=== PATIENT | male | born 1985 | race Caucasian/White ===

== ENCOUNTER 2016-05-31 09:17 | Emergency (ER) | END 2016-05-31 14:19 | disposition home or self-care (01) | DX: N48.1 Balanitis (principal); E11.9 Type 2 diabetes mellitus without complications; Z79.4 Long term (current) use of insulin | CPT/HCPCS: 80053; 81003; 82962; 85025; 87591; 96372; J0696; J7030; Z7502; Z7610 ==

== ENCOUNTER 2016-06-23 15:24 | Inpatient (IN) | payer OTHER ==
[2016-06-23] VITALS (11 sets, daily range): BP systolic 103–129; BP diastolic 30–98; PULSE 91–119; RESP 8–33; TEMP 97.8; Ht 185.4 cm; Wt 90.7 kg
[~2016-06-23] VITALS: Ht 185.4 cm; Wt 90.7 kg
[~2016-06-23 15:24] MED LIST: CLOT30CR24 TOP; INSU100C SQ; LANT3I SC; NPH,100V SC
[2016-06-23 15:38] LABS: ADD SCAN DIFF NO
[2016-06-23] MEDS ORDERED: SOD CHLORIDE 0.9% 2,000 ML IV STA (15:39)
[2016-06-23 15:40] LABS: BASOPHIL # 0.1 10^3/ul (0.0-0.1); BASOPHILS % 0.7 % (0.0-2.0); EOSINOPHILS # 0.3 10^3/ul (0.0-0.5); EOSINOPHILS % 3.9 % (0.0-7.0); HEMATOCRIT 42.2 % (42.0-52.0); HEMOGLOBIN 15.7 g/dl (14.0-18.0); LYMPHOCYTES # 3.4 10^3/ul (0.8-2.9); LYMPHOCYTES % 49.3 % (15.0-51.0); MEAN CORPUSCULAR HGB CONC 37.2 g/dl (32.0-37.0); MEAN CORPUSCULAR VOLUME 83.2 fl (82.0-101.0); MONOCYTE # 0.5 10^3/ul (0.3-0.9); MONOCYTES % 7.8 % (0.0-11.0); NEUTROPHIL # 2.6 10^3/ul (1.6-7.5); NEUTROPHILS % 38.2 % (39.0-77.0); PLATELET COUNT 198 10^3/UL (140-415); RED BLOOD COUNT 5.07 10^6/ul (4.70-6.10); RED CELL DISTRIBUTION WIDTH 11.9 % (11.5-14.5); WHITE BLOOD COUNT 6.9 10^3/ul (4.8-10.8)
[2016-06-23 15:57] LABS: ALBUMIN 4.5 g/dl (3.3-4.9)
[2016-06-23 15:58] LABS: CHLORIDE 105 mmol/L (97-110); POTASSIUM 3.7 mmol/L (3.5-5.1); SODIUM 147 mmol/L (135-144)
[2016-06-23 16:00] LABS: ANION GAP 20 (8-16); ASPARTATE AMINO TRANSFERASE 45 IU/L (15-46); BILIRUBIN,INDIRECT 0.3 mg/dl (0-1.1); BILIRUBIN,TOTAL 0.3 mg/dl (0.2-1.3); CARBON DIOXIDE 26 mmol/L (21-31); CREATININE 0.59 mg/dl (0.61-1.24)
[2016-06-23 16:01] LABS: ALANINE AMINOTRANSFERASE 80 IU/L (13-69); ALBUMIN/GLOBULIN RATIO 2.04; ALKALINE PHOSPHATASE 53 IU/L (42-121); BLOOD UREA NITROGEN 12 mg/dl (7-20); CALCIUM 9.6 mg/dl (8.4-10.2); GLUCOSE 70 mg/dl (70-220); TOTAL PROTEIN 6.7 g/dl (6.1-8.1)
[2016-06-23 16:03] LABS: ACETAMINOPHEN < 10.0 ug/ml (10.0-30.0); SALICYLATE < 1.0 mg/dl (5.0-30.0)
[2016-06-23] MEDS ORDERED: NA BICARBONATE 8.4% 50 ML SYG IV STA (16:26)
[2016-06-23] MEDS ORDERED: SODIUM BICARBONATE (IV ADD) 150 MEQ in DEXTROSE 5% 1,000 ML IV STA (16:27)
[2016-06-23 17:49] LABS: ADD UMIC NO; URINE BILIRUBIN (Dip) NEGATIVE (NEGATIVE); URINE BLOOD (Dip) NEGATIVE (NEGATIVE); URINE COLOR LT. YELLOW (YELLOW); URINE GLUCOSE (Dip) NEGATIVE (NEGATIVE); URINE KETONES (Dip) NEGATIVE (NEGATIVE); URINE LEUKOCYTE ESTERASE (Dip) NEGATIVE (NEGATIVE); URINE NITRITE (Dip) NEGATIVE (NEGATIVE); URINE TOTAL PROTEIN (Dip) NEGATIVE (NEGATIVE); URINE UROBILINOGEN (Dip) 0.2 E.U./dL (0.1-1.0)
[2016-06-23 18:05] LABS: BARBITURATES Negative (NEGATIVE)
[2016-06-23 18:06] LABS: BENZODIAZEPINES Negative (NEGATIVE); CANNABINOIDS Negative (NEGATIVE); COCAINE Negative (NEGATIVE); OPIATES Negative (NEGATIVE)
[2016-06-23] MEDS ORDERED: ONDANSETRON 4 MG INJ IV PRN (18:30)
[2016-06-23] MEDS ORDERED: NACL 0.9% 3 ML SYG IV SCH (18:30)
[2016-06-23] MEDS ORDERED: LORAZEPAM 2 MG INJ IV PRN (18:30)
[2016-06-23] MEDS ORDERED: ACETAMINOPHEN 325 MG TAB PO PRN (18:30)
[2016-06-23] MEDS ORDERED: GLUCOSE GEL 15 GRAM TUBE PO PRN ×2 (19:00)
[2016-06-23] MEDS ORDERED: GLUCAGON 1 MG INJ IM PRN (19:00)
[2016-06-23] MEDS ORDERED: GLUCOSE GEL 15 GRAM TUBE BUCCAL PRN (19:00)
[2016-06-23] MEDS ORDERED: DEXTROSE 50% 50 ML SYRINGE IV PRN ×2 (19:00)
--- NOTE | 2016-06-23 19:51 | ERA ---
ER Documentation Chief Complaint Date/Time DATE: 06/23/16 TIME: 19:48 Chief Complaint ETOH HPI Patient is a 31-year-old male with depression who presents with a overdose. Please note the history and physical exam is limited secondary to the patient's mental status. The patient was brought in by ambulance. His family called 911 because they were concerned about him. The patient admits to drinking alcohol. The paramedics that he also used cocaine. He says that he takes Prozac for depression. ROS All systems reviewed and are negative except as per history of present illness. Medications Home Meds Reported Medications Insulin Lispro (Humalog) 100 Unit/1 Ml Cartridge, 20 UNIT SQ BEFORE MEALS 04/06/16 Nph, Human Insulin Isophane (Humulin N) 100 Units/Ml Vial, 20 UNIT SC HS, VIAL 01/06/15 Insulin Glargine* (Lantus*) 100 Unit/Ml Soln, 40 UNIT SC HS, EA 06/22/14 Discontinued Scripts Clotrimazole* (Clotrimazole* AF) 1% - 30 Gm Cream.gm., 1 APPLIC TOP BID for 7 Days, #1 TUB Prov:MICHAEL FULLER PA-C 05/31/16 Allergies Allergies: Coded Allergies: No Known Allergy (Verified , 06/23/16) PMhx/Soc History of Surgery: Yes (shaan (2007)) Anesthesia Reaction: No Hx Neurological Disorder: No Hx Respiratory Disorders: No Hx Cardiac Disorders: Yes (HIGH CHOLESTEROL) Hx Psychiatric Problems: Yes (DEPRESSION, anxiety) Hx Miscellaneous Medical Probl: Yes (DM) Hx Alcohol Use: Yes (HEAVY DRANK 8BEERS AND HARD LIQUOR TODAY) Hx Substance Use: Yes (MARAJUANA) Hx Tobacco Use: No Smoking Status: Unknown if ever smoked FmHx Family History: No diabetes Physical Exam Vitals Vital Signs Date Time Temp Pulse Resp B/P Pulse Ox O2 Delivery O2 Flow Rate FiO2 06/23/16 19:02 97.6 87 13 108/62 97 Room Air 06/23/16 17:40 98.0 114 20 137/96 100 Room Air 06/23/16 16:50 98.0 123 20 108/71 100 Room Air 06/23/16 15:24 98.1 127 20 131/77 100 Physical Exam Const: Altered Head: Atraumatic Eyes: Normal Conjunctiva ENT: Normal External Ears, Nose and Mouth. Neck: Full range of motion..~ No meningismus. Resp: Clear to auscultation bilaterally Cardio: Tachycardic rate Abd: Soft, non tender, non distended. Normal bowel sounds Skin: No petechiae or rashes Back: No midline or flank tenderness Ext: No cyanosis, or edema Neur: Awake but intoxicated Result Diagram: 06/23/16 1530 06/23/16 1530 Results 24 hrs Laboratory Tests Test 06/23/16 15:30 06/23/16 15:56 06/23/16 16:25 06/23/16 16:44 Acetaminophen Level < 10.0ug/ml Alanine Aminotransferase (ALT/SGPT) 80IU/L Albumin 4.5g/dl Albumin/Globulin Ratio 2.04 Alkaline Phosphatase 53IU/L Anion Gap 20 Aspartate Amino Transf (AST/SGOT) 45IU/L Basophils # 0.110^3/ul Basophils % 0.7% Blood Urea Nitrogen 12mg/dl Calcium Level 9.6mg/dl Carbon Dioxide Level 26mmol/L Chloride Level 105mmol/L Creatinine 0.59mg/dl Direct Bilirubin 0.00mg/dl Eosinophils # 0.310^3/ul Eosinophils % 3.9% Ethyl Alcohol Level 122.0mg/dl Globulin 2.20g/dl Glucose Level 70mg/dl Hematocrit 42.2% Hemoglobin 15.7g/dl Indirect Bilirubin 0.3mg/dl Lymphocytes # 3.410^3/ul Lymphocytes % 49.3% Mean Corpuscular Hemoglobin 31.0pg Mean Corpuscular Hemoglobin Concent 37.2g/dl Mean Corpuscular Volume 83.2fl Mean Platelet Volume 9.0fl Monocytes # 0.510^3/ul Monocytes % 7.8% Neutrophils # 2.610^3/ul Neutrophils % 38.2% Nucleated Red Blood Cells # 0.010^3/ul Nucleated Red Blood Cells % 0.0/100WBC Platelet Count 74027^3/UL Potassium Level 3.7mmol/L Red Blood Count 5.0710^6/ul Red Cell Distribution Width 11.9% Salicylates Level < 1.0mg/dl Sodium Level 147mmol/L Total Bilirubin 0.3mg/dl Total Protein 6.7g/dl White Blood Count 6.910^3/ul Bedside Glucose 64mg/dL 80mg/dL Urine Amphetamines Screen Negative Urine Barbiturates Negative Urine Benzodiazepines Screen Negative Urine Bilirubin NEGATIVE Urine Cannabinoids Negative Urine Clarity CLEAR Urine Cocaine Screen Negative Urine Color LT. YELLOW Urine Glucose NEGATIVE% Urine Hemoglobin NEGATIVE Urine Ketones NEGATIVE Urine Leukocyte Esterase NEGATIVE Urine Nitrite NEGATIVE Urine Opiates Screen Negative Urine Specific [place] <=1.005 Urine Total Protein NEGATIVE Urine Urobilinogen 0.2 E.U./dL Urine pH 6.0 Current Medications Medications (Trade) Dose Ordered Sig/Amanda Route PRN Reason Start Time Stop Time Status Last Admin Dose Admin Sodium Chloride (NS) 2,000 ml @ 1,000 mls/hr Q2H STAT IV 06/23/16 15:39 06/23/16 17:38 DC 06/23/16 16:40 Sodium Bicarbonate 50 ml 50 ml ONCE STAT IV 06/23/16 16:26 06/23/16 16:27 DC 06/23/16 16:38 Sodium Bicarbonate/ Dextrose (Na Bicarb/D5W) 1,150 ml @ 200 mls/hr Q5H45M STAT IV 06/23/16 16:27 06/23/16 22:11 06/23/16 17:05 IV Flush (NS 3 ml) 3 ml PER PROTOCOL IV 06/23/16 18:30 Lorazepam (Ativan) 0.5 mg Q6H PRN IV ANXIETY 06/23/16 18:30 Ondansetron HCl (Zofran Inj) 4 mg Q6H PRN IV NAUSEA AND/OR VOMITING 06/23/16 18:30 Acetaminophen (Tylenol Tab) 650 mg Q6H PRN PO PAIN LEVEL 1-3 OR FEVER 06/23/16 18:30 Acetaminophen/ Hydrocodone Bitart ([place] (5/325)) 1 tab Q6H PRN PO PAIN LEVEL 4-6 06/23/16 18:30 Morphine Sulfate (morphine) 2 mg Q4H PRN IV PAIN LEVEL 7-10 06/23/16 18:30 Famotidine (Pepcid) 20 mg Q12 PO 06/23/16 21:00 Insulin Aspart (Novolog Insulin Pen) NOVOLOG *MILD* ALGORITHM WITH MEALS BEDTIME SC 06/23/16 21:00 UNV Insulin Glargine (Lantus) 10 unit DAILY@08 SC 06/24/16 08:00 UNV Insulin Aspart (Novolog Insulin Pen) 3 unit WITH MEALS SC 06/24/16 08:00 Miscellaneous Information (* Miscellaneous Pharmacy Order) HYPOGLYCEMIA PROTOCOL w... ONCE ONCE XX 06/23/16 18:30 06/23/16 18:30 DC Miscellaneous Information (* Miscellaneous Pharmacy Order) Discontinue Glyburide, Glipizide,... ONCE ONCE XX 06/23/16 18:30 06/23/16 18:30 DC Miscellaneous Information (* Miscellaneous Pharmacy Order) Discontinue all previ... ONCE ONCE XX 06/23/16 18:30 06/23/16 18:30 DC Miscellaneous Information 1 ea NOTE XX 06/23/16 19:00 Glucose (Glutose) 15 gm Q15M PRN PO DECREASED GLUCOSE 06/23/16 19:00 Glucose (Glutose) 22.5 gm Q15M PRN PO DECREASED GLUCOSE 06/23/16 19:00 Dextrose (D50w Syringe) 25 ml Q15M PRN IV DECREASED GLUCOSE 06/23/16 19:00 Dextrose (D50w Syringe) 50 ml Q15M PRN IV DECREASED GLUCOSE 06/23/16 19:00 Glucagon (Glucagen) 1 mg Q15M PRN IM DECREASED GLUCOSE 06/23/16 19:00 Glucose (Glutose) 15 gm Q15M PRN BUCCAL DECREASED GLUCOSE 06/23/16 19:00 Chlordiazepoxide 50 mg 50 mg TID PO 06/23/16 21:00 UNV Multivitamins/ Thiamine HCl/ Folic Acid/Sodium Chloride (Mvi-12 Adult/ Vitamin B1/Folic Acid/NS) 1,011.2 ml @ 125 mls/ hr DAILY@09 IVPB 06/24/16 09:00 UNV Sertraline HCl (Zoloft) 100 mg DAILY PO 06/24/16 09:00 UNV Procedures/MDM EKG #1 read by me: Rate/Rhythm: Sinus tachycardia at a rate of 118 Intervals: Prolonged QRS of 156 Impression: Sinus tachycardia with prolonged QRS and prominent R-wave in aVR consistent with tricyclic antidepressant overdose EKG #2 read by me: Rate/Rhythm: Sinus tachycardia at a rate of 111 Intervals: Prolonged QRS of 142 Impression: Sinus tachycardia with prolonged QRS and prominent R-wave in aVR consistent with tricyclic antidepressant overdose but improvement after bicarb Patient is a 31-year-old male with depression who presents with an overdose. I am concerned for possible acute tricyclic antidepressant overdose based on the EKG appearance with prominent R-wave in aVR, sinus tachycardia, and prolonged QRS complex. The patient was given bicarb 1 amp IV as well as a bicarbonate drip. The patient is preferred IPA and I spoke with Dr. Garrett for admission to the ICU. The patient has diabetes and is seen by Dr. Kyle and I spoke with Dr. Smiley as well who will see the patient in consultation. The patient has a one-to-one sitter as this was most likely an intentional overdose given his depression. The patient will likely need further psychiatric care once he is medically cleared. Departure Diagnosis: Primary Impression: Tricyclic antidepressant poisoning Qualified Code: T43.012A - Poisoning by tricyclic antidepressant, intentional self-harm, initial encounter Additional Impressions: Suicidal ideation Alcoholic intoxication Qualified Code: F10.121 - Alcoholic intoxication, with delirium Overdose Qualified Code: T50.902A - Overdose, intentional self-harm, initial encounter Condition: Critical DAMIEN BRAVO MD Jun 23, 2016 19:51
[2016-06-23] MEDS: INSULIN ASPART [NOVOLOG] 3 ML PEN SC SCH (21:00)
[2016-06-23] MEDS: CHLORDIAZEPOXIDE 25 MG CAP PO SCH (21:26)
[2016-06-23] MEDS: FAMOTIDINE 20 MG TAB PO SCH (21:26)
[2016-06-24] VITALS (20 sets, daily range): BP systolic 103–138; BP diastolic 60–98; PULSE 84–103; RESP 13–21
--- NOTE | 2016-06-24 04:22 | HP ---
DATE OF ADMISSION: 06/23/2016 TIME OF EVALUATION: 1800 hours. REASON FOR ADMISSION: Brought in for alcohol intoxication and altered level of consciousness. HISTORY OF PRESENT ILLNESS: This is a 31-year-old male with past medical history of depression, alcohol abuse, and diabetes mellitus type2 who was brought to the emergency room from because of alcohol intoxication and altered level of consciousness. The patient was noticed to have alcohol level of 122 in the emergency room. The patient was somnolent but awake and was able to answer questions. The patient verbalized that he does not remember what happened before he was brought to the hospital. The patient verbalized that he does not remember how much alcohol he drank. The patient also verbalized that he took "31 tablets of Lorazepam and 10 tablets of Ambien." The patient verbalized that he took these medications because he wanted to "get high." However, the patient's urine drug toxicology was negative for any benzodiazepines. The patient kept on saying "I am not suicidal." However, the patient verbalized that he has been placed on 5150 previously, and he was requesting not to make him a 5150 again. The patient verbalized that he was having some headache. The patient denied any visual or tactile hallucinations. The patient denied any chest pain, nausea, abdominal pain, or diarrhea. The patient was noticed to have multiple skin abrasions on both upper and lower extremities. The patient was unable to give me a complete explanation. 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 The patient was noticed to be hypoglycemic with a glucose of 64. The patient was treated with IV fluids along with IV sodium bicarbonate in the emergency room. PAST MEDICAL HISTORY: Type 2 diabetes mellitus, dyslipidemia, depression. PAST SURGICAL HISTORY: Appendectomy, bilateral foot surgeries. HOME MEDICATIONS: 1. Lantus insulin 40 units subcutaneously at bedtime. 2. Humalog insulin 20 units subcutaneously before meals. 3. NPH insulin 20 units subcutaneously at bedtime. ALLERGIES: NO KNOWN DRUG ALLERGIES. SOCIAL HISTORY: The patient verbalized that he lives at home with his mother. The patient verbalized that he works at [employer]. Everyday alcohol user. He verbalized that he smokes weed. He denies any tobacco use. REVIEW OF SYSTEMS: A 12-point review of systems was made and review of systems was negative other than what is mentioned in the history of present illness. PHYSICAL EXAMINATION: VITAL SIGNS: Temperature 97.6, pulse rate 87, respiratory rate 13, blood pressure 108/62, oxygen saturation 97% on room air. GENERAL: This is a slightly overweight male lying in bed who looks disheveled and not in any apparent distress. HEENT: Head normocephalic and atraumatic. Eyes: Anicteric sclerae. Conjunctivae clear. ENT: Nasal septum is midline. Oral mucosa is dry. NECK: Supple. No JVD noticed. RESPIRATORY: Bilaterally clear to auscultation. No adventitious breath sounds heard. No use of accessory muscles of respiration. CARDIAC: Regular rhythm and rate. No murmurs. GASTROINTESTINAL: Abdomen soft, nontender, nondistended. Bowel sounds positive in all 4 quadrants. Right lower quadrant transverse surgical scar. GENITOURINARY: Deferred. EXTREMITIES: No cyanosis, no clubbing, no edema. Peripheral pulses palpable. NEUROLOGIC: The patient is awake, alert, and oriented. PSYCHIATRIC: Good attention span. Cooperative. No flight of ideas. LABORATORY AND DIAGNOSTIC DATA: WBC 6.9, hemoglobin 15.7, hematocrit 42.2, platelet count 198. Sodium 147, potassium 3.7, chloride 105, carbon dioxide 26 , anion gap 20, BUN 12, creatinine 0.59, glucose 70, calcium 9.6, AST 45, ALT 80 , alkaline phosphatase 53. Urinalysis: Urine nitrite negative, urine leukocyte esterase negative, urine glucose negative, Urine drug toxicology: Negative. Alcohol level 122. IMPRESSION: This is a 31-year-old male with past medical history of depression , diabetes mellitus, and hyperlipidemia who was brought in because of alcohol intoxication and altered level of consciousness with possible TCA overdose. He will be admitted here for further treatment and evaluation. ASSESSMENT AND PLAN: 1. Acute encephalopathy, most probably secondary to alcohol intoxication. The patient is currently awake and alert. The patient will be started on daily banana bag. A social work consult will be obtained. The patient was started on a tapering dose of Librium. The patient will be closely monitored for any acute alcohol withdrawal, delirium. 2. Sinus tachycardia with prolonged QRS and prominent R-wave in aVR consistent with tricyclic antidepressant overdose. Status post sodium bicarbonate. The patient will be monitored in the intensive care unit. Troponins will be obtained to evaluate for any underlying acute coronary syndrome. 3. Intentional overdosing with alcohol with possible TCA overdose. The patient has prior history of suicidal ideation. The patient has prior history of psych hospitalization. Although the patient denies any suicidal ideation, it is very likely that the patient was depressed and was having suicidal ideation. The patient will be placed on a 1:1 sitter. A protective services social worker consult will be obtained. The patient will be started an antidepressant. The patient will also be started on p.r.n. anxiolytics. 4. Type 2 diabetes mellitus. The patient will be resumed on insulin sliding scale along with Lantus as well as premeal insulin. A hemoglobin A1c will be obtained to evaluate the blood glucose control over the past few weeks. 5. Dyslipidemia. A fasting lipid panel will be obtained on this patient. We will reinforce a cholesterol diet. Plan. The patient will be admitted to inpatient intensive care unit. The patient will be started on a carbohydrate controlled diet. The patient will be started on DVT prophylaxis and gastrointestinal prophylaxis. The patient will remain a FULL CODE. Activities will be as tolerated under supervision. A 1:1 sitter will be ordered on this patient. The rest of the patient's findings will be based on the clinical course and the results of diagnostic studies. Based on the patient's clinical presentation, he most probably requires at least 2 midnights' stay for further management and evaluation of his clinical presentation. The case and management of this patient was fully discussed with Dr. Alejo. Approximately 60 minutes was spent on the history and physical of this patient. DIMA ALEJO MD, AM/MIGUEL Conf#: [id number] DID#: [id number] MTDD
[2016-06-24 06:00] LABS: ADD SCAN DIFF NO
[2016-06-24 06:16] LABS: BASOPHILS % 0.9 % (0.0-2.0); EOSINOPHILS # 0.2 10^3/ul (0.0-0.5); EOSINOPHILS % 4.3 % (0.0-7.0); HEMATOCRIT 38.8 % (42.0-52.0); HEMOGLOBIN 13.9 g/dl (14.0-18.0); LYMPHOCYTES # 1.7 10^3/ul (0.8-2.9); LYMPHOCYTES % 38.8 % (15.0-51.0); MEAN CORPUSCULAR HEMOGLOBIN 30.6 pg (29.0-33.0); MEAN CORPUSCULAR HGB CONC 35.8 g/dl (32.0-37.0); MEAN CORPUSCULAR VOLUME 85.5 fl (82.0-101.0); MEAN PLATELET VOLUME 9.4 fl (7.4-10.4); MONOCYTE # 0.5 10^3/ul (0.3-0.9); MONOCYTES % 11.1 % (0.0-11.0); NEUTROPHILS % 44.7 % (39.0-77.0); PLATELET COUNT 183 10^3/UL (140-415); RED BLOOD COUNT 4.54 10^6/ul (4.70-6.10); WHITE BLOOD COUNT 4.4 10^3/ul (4.8-10.8)
[2016-06-24 06:45] LABS: TROPONIN-I < 0.010 ng/ml (0.00-0.12)
[2016-06-24 06:46] LABS: ALBUMIN 3.5 g/dl (3.3-4.9)
[2016-06-24 06:47] LABS: POTASSIUM 3.8 mmol/L (3.5-5.1)
[2016-06-24 06:49] LABS: ALBUMIN/GLOBULIN RATIO 1.66; BILIRUBIN,INDIRECT 0.5 mg/dl (0-1.1); BILIRUBIN,TOTAL 0.5 mg/dl (0.2-1.3); CREATININE 0.65 mg/dl (0.61-1.24); TOTAL PROTEIN 5.6 g/dl (6.1-8.1)
[2016-06-24 06:50] LABS: CALCIUM 8.6 mg/dl (8.4-10.2); CHOLESTEROL 158 mg/dl (100-200); TRIGLYCERIDES 104 mg/dl (0-149)
[2016-06-24 06:51] LABS: CHOL/HDL RATIO 5.2 RATIO; HDL CHOLESTEROL 30 mg/dl (28-63); MAGNESIUM 1.7 mg/dl (1.7-2.5); PHOSPHORUS 4.2 mg/dl (2.5-4.9)
[2016-06-24] MEDS ORDERED: INSULIN ASPART [NOVOLOG] 3 ML PEN SC SCH (07:35)
--- NOTE | 2016-06-24 07:49 | PN ---
Date/Time of Note Date/Time of Note DATE: 06/24/16 TIME: 07:45 Assessment/Plan VTE Prophylaxis VTE Prophylaxis Intervention: other Lines/Catheters IV C[facility]ter Type (from [facility] Peripheral IV Assessment/Plan Problems: (1) Alcoholism /alcohol abuse Status: Chronic Comment: This is been a chronic problem the patient states that he would really like to go into a rehab facility. He states he is attempted to a number of times but it that has been turned away at the last moment. Compounding this is that he essentially has changed his healthcare providers with his changed his physicians on a frequent basis. Given that he has now had a formalized suicide attempt he should go to some type of psychiatric facility and then into an inpatient drug and alcohol rehab facility. He will receive a banana bag presently. (2) Overdose Status: Acute Comment: The basis of labeling this a try cyclic antidepressant was based exclusively on the EKG. His tox screen actually is relatively negative except for alcohol. Regardless he is now cooled off in the ICU and can be transferred to regular floor with a sitter for protection and we can go ahead with a tele- psych consultation. Medically he is clear Qualifiers: Encounter type: initial encounter Injury intent: intentional self-harm Qualified Code: T50.902A - Overdose, intentional self-harm, initial encounter (3) Suicidal ideation Status: Acute Comment: Juan psych consult (4) Alcoholic intoxication Status: Acute Comment: Clearing. Qualifiers: Complication of substance-induced condition: with delirium Qualified Code: F10.121 - Alcoholic intoxication, with delirium (5) Diabetes mellitus type 2 in obese Status: Chronic Comment: He had been on combination of insulin and oral agents specifically metformin and pioglitazone. He was last seen by my partner in July 2014 but is changed insurances 3 times son and essentially has no study follow-up. Please note the quality of his history is dubious not so much on the basis of mental status but is the ravages of the addiction behavior he tends not to give a solid answers to questions unless approached with solid information upfront (6) Hyperlipidemia Status: Chronic Comment: Resume statin therapy Qualifiers: Hyperlipidemia type: pure hypercholesterolemia Qualified Code: E78.00 - Pure hypercholesterolemia Subjective 24 Hr Interval Summary Free Text/Dictation 31-year-old gentleman now fully awake and oriented. Able to answer questions. He reports that he actually was attempting to harm himself. Constitutional: no complaints (No fever chills or sweats) Eyes: no complaints (No visual or vision complaints) ENT: no complaints Respiratory: no complaints Cardiovascular: no complaints Gastrointestinal: no complaints Genitourinary: no complaints Endocrine: no complaints Exam/Review of Systems Vital Signs Vitals Vital Signs Date Time Temp Pulse Resp B/P Pulse Ox O2 Delivery O2 Flow Rate FiO2 06/24/16 07:00 98.7 93 20 128/84 97 Room Air Intake and Output 06/23/16 06/23/16 06/24/16 15:00 23:00 07:00 Intake Total 3490 ml 690 ml Output Total 0 ml 1200 ml Balance 3490 ml -510 ml Exam Constitutional: alert, oriented Psych: depression, suicidal Head: atraumatic, normocephalic Neck: non-tender, supple Respiratory: clear to auscultation, normal air movement Cardiovascular: nl pulses, regular rate and rhythm Gastrointestinal: nl liver, spleen, non-tender, soft Results Result Diagram: 06/24/16 0450 06/24/16 0450 Results 24 hrs Laboratory Tests Test 06/23/16 15:30 06/23/16 15:56 06/23/16 16:25 06/23/16 16:44 Acetaminophen Level < 10.0 L Alanine Aminotransferase (ALT/SGPT) 80 H Albumin 4.5 Albumin/Globulin Ratio 2.04 Alkaline Phosphatase 53 Anion Gap 20 H Aspartate Amino Transf (AST/SGOT) 45 Basophils # 0.1 Basophils % 0.7 Blood Urea Nitrogen 12 Calcium Level 9.6 Carbon Dioxide Level 26 Chloride Level 105 Creatinine 0.59 L Direct Bilirubin 0.00 Eosinophils # 0.3 Eosinophils % 3.9 Ethyl Alcohol Level 122.0 Globulin 2.20 Glucose Level 70 Hematocrit 42.2 Hemoglobin 15.7 Indirect Bilirubin 0.3 Lymphocytes # 3.4 H Lymphocytes % 49.3 Mean Corpuscular Hemoglobin 31.0 Mean Corpuscular Hemoglobin Concent 37.2 H Mean Corpuscular Volume 83.2 Mean Platelet Volume 9.0 Monocytes # 0.5 Monocytes % 7.8 Neutrophils # 2.6 Neutrophils % 38.2 L Nucleated Red Blood Cells # 0.0 Nucleated Red Blood Cells % 0.0 Platelet Count 198 Potassium Level 3.7 Red Blood Count 5.07 Red Cell Distribution Width 11.9 Salicylates Level < 1.0 L Sodium Level 147 H Total Bilirubin 0.3 Total Protein 6.7 White Blood Count 6.9 # Bedside Glucose 64 L 80 Urine Amphetamines Screen Negative Urine Barbiturates Negative Urine Benzodiazepines Screen Negative Urine Bilirubin NEGATIVE Urine Cannabinoids Negative Urine Clarity CLEAR Urine Cocaine Screen Negative Urine Color LT. YELLOW Urine Glucose NEGATIVE Urine Hemoglobin NEGATIVE Urine Ketones NEGATIVE Urine Leukocyte Esterase NEGATIVE Urine Nitrite NEGATIVE Urine Opiates Screen Negative Urine Specific [place] <=1.005 L Urine Total Protein NEGATIVE Urine Urobilinogen 0.2 E.U./dL Urine pH 6.0 Test 06/23/16 20:08 06/23/16 21:24 06/23/16 23:24 06/24/16 04:50 Bedside Glucose 149 146 Troponin I 0.014 < 0.010 Alanine Aminotransferase (ALT/SGPT) 75 H Albumin 3.5 # Albumin/Globulin Ratio 1.66 Alkaline Phosphatase 50 Anion Gap 13 # Aspartate Amino Transf (AST/SGOT) 41 Basophils # 0.0 Basophils % 0.9 Blood Urea Nitrogen 11 Calcium Level 8.6 Carbon Dioxide Level 31 Chloride Level 103 Cholesterol Level 158 Cholesterol/HDL Ratio 5.2 Creatinine 0.65 Direct Bilirubin 0.00 Eosinophils # 0.2 Eosinophils % 4.3 Globulin 2.10 Glucose Level 238 #H HDL Cholesterol 30 Hematocrit 38.8 L Hemoglobin 13.9 L Indirect Bilirubin 0.5 LDL Cholesterol, Calculated 107 Lymphocytes # 1.7 Lymphocytes % 38.8 Magnesium Level 1.7 Mean Corpuscular Hemoglobin 30.6 Mean Corpuscular Hemoglobin Concent 35.8 Mean Corpuscular Volume 85.5 Mean Platelet Volume 9.4 Monocytes # 0.5 Monocytes % 11.1 H Neutrophils # 2.0 Neutrophils % 44.7 Nucleated Red Blood Cells # 0.0 Nucleated Red Blood Cells % 0.0 Phosphorus Level 4.2 Platelet Count 183 Potassium Level 3.8 Red Blood Count 4.54 L Red Cell Distribution Width 12.0 Sodium Level 143 Thyroid Stimulating Hormone (TSH) Pending Total Bilirubin 0.5 Total Protein 5.6 #L Triglycerides Level 104 White Blood Count 4.4 #L Medications Medications Current Medications Lorazepam (Ativan) 0.5 mg Q6H PRN IV ANXIETY; Start 06/23/16 at 18:30 Ondansetron HCl (Zofran Inj) 4 mg Q6H PRN IV NAUSEA AND/OR VOMITING; Start at 18:30 Acetaminophen (Tylenol Tab) 650 mg Q6H PRN PO PAIN LEVEL 1-3 OR FEVER Last administered on 06/24/16 04:38; Admin Dose 650 MG; Start 06/23/16 at 18:30 Acetaminophen/ Hydrocodone Bitart ([place] (5/325)) 1 tab Q6H PRN PO PAIN LEVEL 4 -6; Start 06/23/16 at 18:30 Morphine Sulfate (morphine) 2 mg Q4H PRN IV PAIN LEVEL 7-10; Start 06/23/16 at 18:30 Famotidine (Pepcid) 20 mg Q12 PO Last administered on 06/23/16 21:26; Admin Dose 20 MG; Start 06/23/16 at 21:00 Insulin Glargine (Lantus) 10 unit DAILY@08 SC ; Start 06/24/16 at 08:00 Miscellaneous Information 1 ea NOTE XX ; Start 06/23/16 at 19:00 Glucose (Glutose) 15 gm Q15M PRN PO DECREASED GLUCOSE; Start 06/23/16 at 19:00 Glucose (Glutose) 22.5 gm Q15M PRN PO DECREASED GLUCOSE; Start 06/23/16 at 19: 00 Dextrose (D50w Syringe) 25 ml Q15M PRN IV DECREASED GLUCOSE; Start 06/23/16 at 19:00 Dextrose (D50w Syringe) 50 ml Q15M PRN IV DECREASED GLUCOSE; Start 06/23/16 at 19:00 Glucagon (Glucagen) 1 mg Q15M PRN IM DECREASED GLUCOSE; Start 06/23/16 at 19:00 Glucose (Glutose) 15 gm Q15M PRN BUCCAL DECREASED GLUCOSE; Start 06/23/16 at 19 :00 Chlordiazepoxide 50 mg 50 mg TID PO Last administered on 06/23/16 21:26; Admin Dose 50 MG; Start 06/23/16 at 21:00 Multivitamins/ Thiamine HCl/ Folic Acid/Sodium Chloride (Mvi-12 Adult/ Vitamin B1/Folic Acid/NS) 1,011.2 ml @ 125 mls/ hr DAILY@09 IVPB ; Start 06/24/16 at 09 :00 Sertraline HCl (Zoloft) 100 mg DAILY PO ; Start 06/24/16 at 09:00 ARIE DOBSON MD Jun 24, 2016 07:49
[2016-06-24] MEDS ORDERED: INSULIN GLARGINE [LANtus] 3 ML PEN SC SCH (08:00)
[2016-06-24] MEDS: CHLORDIAZEPOXIDE 25 MG CAP PO SCH ×3 (08:34→20:33)
[2016-06-24] MEDS: SERTRALINE 100 MG TAB PO SCH (09:13)
[2016-06-24] MEDS: MULTIVITAMINS 10 ML, THIAMINE 100 MG, FOLIC ACID 1 MG in SOD CHLORIDE 0.9% 1,000 ML IVPB SCH (09:13)
[2016-06-24] MEDS: metFORMIN 500 MG TAB PO SCH ×2 (09:14→17:19)
[2016-06-24] MEDS: INSULIN ASPART [NOVOLOG] 3 ML PEN SC SCH ×7 (09:21→20:38)
[2016-06-24] MEDS: FAMOTIDINE 20 MG TAB PO SCH ×2 (09:24→20:33)
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
[2016-06-24] MEDS: ATORVASTATIN 20 MG TAB PO SCH (20:33)
[2016-06-24] MEDS: INSULIN GLARGINE [LANtus] 3 ML PEN SC SCH (20:39)
[2016-06-24] MEDS: HYDROCODONE/APAP (5/325) TAB PO PRN (23:20)
[2016-06-25] VITALS (7 sets, daily range): BP systolic 127–133; BP diastolic 80–97; PULSE 68–75; RESP 12–20
[2016-06-25] MEDS: INSULIN ASPART [NOVOLOG] 3 ML PEN SC SCH ×6 (08:00→21:00)
[2016-06-25] MEDS: CHLORDIAZEPOXIDE 25 MG CAP PO SCH ×2 (08:56→12:34)
[2016-06-25] MEDS: metFORMIN 500 MG TAB PO SCH ×2 (08:56→17:24)
[2016-06-25] MEDS: FAMOTIDINE 20 MG TAB PO SCH ×2 (08:56→21:14)
[2016-06-25] MEDS: SERTRALINE 100 MG TAB PO SCH (08:57)
[2016-06-25] MEDS: HYDROCODONE/APAP (5/325) TAB PO PRN (08:57)
--- NOTE | 2016-06-25 09:30 | PN ---
Date/Time of Note Date/Time of Note DATE: 06/25/16 TIME: 09:26 Assessment/Plan VTE Prophylaxis VTE Prophylaxis Intervention: other Lines/Catheters IV Catheter Type (from Nrs): Saline Lock Assessment/Plan Problems: (1) Major depressive disorder with current active episode Status: Chronic Comment: Patient has been seen by tele-psychiatry was placed the patient on a 5150 hold and recommends transfer to an inpatient psychiatric facility. From medical standpoint this patient is clear for transfer. Please note that they are not voicing suicidal homicidal ideation to me at this time. Is in fact possible the patient is attempting to use medical facilities as a place to stay to avoid being homeless however the [facility] is not the appropriate location form now Qualifiers: Major depression recurrence: recurrent Major depression episode severity: severe Psychotic features: without psychotic features Qualified Code: F33.2 - Severe episode of recurrent major depressive disorder, without psychotic features (2) Diabetes mellitus type 2 in obese Status: Chronic Comment: Improving control. Please note he is not a type I diabetic. Will adjust his regimen to simplify for purposes of convenience and simplicity after discharge (3) Overweight Status: Chronic Comment: Noted calorie controlled diet (4) Hyperlipidemia Status: Chronic Qualifiers: Hyperlipidemia type: pure hypercholesterolemia Qualified Code: E78.00 - Pure hypercholesterolemia (5) Overdose Status: Resolved Comment: Resolved. Please note there is no evidence of tricyclics that diagnosis was based purely on an EKG Qualifiers: Encounter type: initial encounter Injury intent: intentional self-harm Qualified Code: T50.902A - Overdose, intentional self-harm, initial encounter (6) Suicidal ideation Status: Acute Comment: As per [facility] psych he is on hold (7) Alcoholism /alcohol abuse Status: Chronic Comment: He is detoxed there is no evidence of delirium tremens. (8) Alcoholic intoxication Status: Resolved Comment: Resolved Qualifiers: Complication of substance-induced condition: with delirium Qualified Code: F10.121 - Alcoholic intoxication, with delirium Subjective 24 Hr Interval Summary Free Text/Dictation Patient reports that he is feeling overall well. Currently without specific suicidal or homicidal ideation that he is willing to verbalize to this physician Constitutional: no complaints Respiratory: no complaints Cardiovascular: no complaints Gastrointestinal: no complaints Genitourinary: no complaints Exam/Review of Systems Vital Signs Vitals Vital Signs Date Time Temp Pulse Resp B/P Pulse Ox O2 Delivery O2 Flow Rate FiO2 06/25/16 06:00 14 127/97 98 06/25/16 04:00 68 06/25/16 04:00 98.9 06/24/16 21:00 Room Air Intake and Output 06/24/16 06/24/16 06/25/16 15:00 23:00 07:00 Intake Total 1650 ml 250 ml Output Total 900 ml 2700 ml 500 ml Balance -900 ml -1050 ml -250 ml Exam Constitutional: alert, oriented Respiratory: clear to auscultation, normal air movement Cardiovascular: nl pulses, regular rate and rhythm Gastrointestinal: nl liver, spleen, non-tender, soft Results Result Diagram: 06/24/16 0450 06/24/16 0450 Results 24 hrs Laboratory Tests Test 06/24/16 11:38 06/24/16 17:26 06/24/16 20:27 06/25/16 07:39 Bedside Glucose 219 162 195 210 Medications Medications Current Medications Lorazepam (Ativan) 0.5 mg Q6H PRN IV ANXIETY; Start 06/23/16 at 18:30 Ondansetron HCl (Zofran Inj) 4 mg Q6H PRN IV NAUSEA AND/OR VOMITING; Start at 18:30 Acetaminophen (Tylenol Tab) 650 mg Q6H PRN PO PAIN LEVEL 1-3 OR FEVER Last administered on 06/24/16 04:38; Admin Dose 650 MG; Start 06/23/16 at 18:30 Acetaminophen/ Hydrocodone Bitart ([place] (5/325)) 1 tab Q6H PRN PO PAIN LEVEL 4 -6 Last administered on 06/25/16 08:57; Admin Dose 1 TAB; Start 06/23/16 at 18: 30 Morphine Sulfate (morphine) 2 mg Q4H PRN IV PAIN LEVEL 7-10; Start 06/23/16 at 18:30 Famotidine (Pepcid) 20 mg Q12 PO Last administered on 06/25/16 08:56; Admin Dose 20 MG; Start 06/23/16 at 21:00; Stop 07/07/16 at 20:59 Miscellaneous Information 1 ea NOTE XX ; Start 06/23/16 at 19:00 Glucose (Glutose) 15 gm Q15M PRN PO DECREASED GLUCOSE; Start 06/23/16 at 19:00 Glucose (Glutose) 22.5 gm Q15M PRN PO DECREASED GLUCOSE; Start 06/23/16 at 19: 00 Dextrose (D50w Syringe) 25 ml Q15M PRN IV DECREASED GLUCOSE; Start 06/23/16 at 19:00 Dextrose (D50w Syringe) 50 ml Q15M PRN IV DECREASED GLUCOSE; Start 06/23/16 at 19:00 Glucagon (Glucagen) 1 mg Q15M PRN IM DECREASED GLUCOSE; Start 06/23/16 at 19:00 Glucose (Glutose) 15 gm Q15M PRN BUCCAL DECREASED GLUCOSE; Start 06/23/16 at 19 :00 Chlordiazepoxide 50 mg 50 mg TID PO Last administered on 06/25/16 08:56; Admin Dose 50 MG; Start 06/23/16 at 21:00; Stop 06/25/16 at 20:59 Multivitamins/ Thiamine HCl/ Folic Acid/Sodium Chloride (Mvi-12 Adult/ Vitamin B1/Folic Acid/NS) 1,011.2 ml @ 125 mls/ hr DAILY@09 IVPB Last administered on 06/24/16 09:13; Admin Dose 125 MLS/HR; Start 06/24/16 at 09:00 Sertraline HCl (Zoloft) 100 mg DAILY PO Last administered on 06/25/16 08:57; Admin Dose 100 MG; Start 06/24/16 at 09:00 Insulin Glargine (Lantus) 25 unit QHS SC Last administered on 06/24/16 20:39; Admin Dose 25 UNIT; Start 06/24/16 at 21:00 Atorvastatin Calcium (Lipitor) 20 mg HS PO Last administered on 06/24/16 20:33 ; Admin Dose 20 MG; Start 06/24/16 at 21:00 ARIE DOBSON MD Jun 25, 2016 09:30
[2016-06-25] MEDS: morphine 2 MG INJ IV PRN ×2 (10:18→22:12)
[2016-06-25] MEDS: MULTIVITAMINS 10 ML, THIAMINE 100 MG, FOLIC ACID 1 MG in SOD CHLORIDE 0.9% 1,000 ML IVPB SCH (10:33)
[2016-06-25] MEDS: REPAGLINIDE 1 MG TAB PO SCH ×2 (12:33→17:15)
[2016-06-25] MEDS: ATORVASTATIN 20 MG TAB PO SCH (21:14)
[2016-06-25] MEDS: INSULIN GLARGINE [LANtus] 3 ML PEN SC SCH (21:15)
[2016-06-26] MEDS: REPAGLINIDE 1 MG TAB PO SCH ×3 (08:36→17:00)
[2016-06-26] MEDS: SERTRALINE 100 MG TAB PO SCH (08:36)
[2016-06-26] MEDS: HYDROCODONE/APAP (5/325) TAB PO PRN ×2 (08:36→22:42)
[2016-06-26] MEDS: FAMOTIDINE 20 MG TAB PO SCH ×2 (08:36→20:48)
[2016-06-26] MEDS: metFORMIN 500 MG TAB PO SCH ×2 (08:36→17:00)
[2016-06-26] MEDS: INSULIN ASPART [NOVOLOG] 3 ML PEN SC SCH ×4 (08:41→21:00)
[2016-06-26] MEDS: MULTIVITAMINS 10 ML, THIAMINE 100 MG, FOLIC ACID 1 MG in SOD CHLORIDE 0.9% 1,000 ML IVPB SCH (08:43)
[2016-06-26] MEDS: morphine 2 MG INJ IV PRN ×2 (12:10→20:50)
--- NOTE | 2016-06-26 14:38 | PN ---
Date/Time of Note Date/Time of Note DATE: 06/26/16 TIME: 14:32 Assessment/Plan VTE Prophylaxis VTE Prophylaxis Intervention: SCD's Lines/Catheters IV Catheter Type (from Nrs): Saline Lock Assessment/Plan Assessment/Plan (1) Major depressive disorder with current active episode Status: Chronic Comment: Patient has been seen by tele-psychiatry was placed the patient on a 5150 hold and recommends transfer to an inpatient psychiatric facility. From medical standpoint this patient is clear for transfer. Please note that they are not voicing suicidal homicidal ideation to me at this time. Is in fact possible the patient is attempting to use medical facilities as a place to stay to avoid being homeless however the [facility] is not the appropriate location form now Qualifiers: Major depression recurrence: recurrent Major depression episode severity: severe Psychotic features: without psychotic features Qualified Code: F33.2 - Severe episode of recurrent major depressive disorder, without psychotic features (2) Diabetes mellitus type 2 in obese Status: Chronic Comment: Improving control. Please note he is not a type I diabetic. Will adjust his regimen to simplify for purposes of convenience and simplicity after discharge (3) Overweight Status: Chronic Comment: Noted calorie controlled diet (4) Hyperlipidemia Status: Chronic Qualifiers: Hyperlipidemia type: pure hypercholesterolemia Qualified Code: E78.00 - Pure hypercholesterolemia (5) Overdose Status: Resolved Comment: Resolved. Please note there is no evidence of tricyclics that diagnosis was based purely on an EKG Qualifiers: Encounter type: initial encounter Injury intent: intentional self-harm Qualified Code: T50.902A - Overdose, intentional self-harm, initial encounter (6) Suicidal ideation Status: Acute Comment: As per [facility] psych he is on hold (7) Alcoholism /alcohol abuse Status: Chronic Comment: He is detoxed there is no evidence of delirium tremens. (8) Alcoholic intoxication Status: Resolved Comment: Resolved (9). Awaiting for placement Subjective 24 Hr Interval Summary Free Text/Dictation still with suicidal ideation Exam/Review of Systems Vital Signs Vitals Vital Signs Date Time Temp Pulse Resp B/P Pulse Ox O2 Delivery O2 Flow Rate FiO2 06/25/16 19:35 97.8 77 18 133/84 96 06/24/16 21:00 Room Air Intake and Output 06/25/16 06/25/16 06/26/16 15:00 23:00 07:00 Intake Total 3020 ml 400 ml Balance 3020 ml 400 ml Exam Constitutional: alert, oriented, well developed Psych: nl mood/affect, no complaints Head: atraumatic, normocephalic Eyes: EOMI, nl conjunctiva, nl lids ENMT: nl external ears & nose, nl lips & teeth, nl nasal mucosa & septum Neck: non-tender, supple Respiratory: clear to auscultation, normal air movement, No congested cough, No crackles/rales, No diminished breath sounds, No intercostal retraction, No labored breathing, No other, No respirations, No tactile fremitus, No wheezing Cardiovascular: nl pulses, regular rate and rhythm, No S3, No S4, No bruits, No diastolic murmur, No edema, No gallop, No irregular rhythm, No jugular venous distention (JVD), No murmurs/extra sounds, No other, No rub, No systolic murmur Gastrointestinal: nl liver, spleen, non-tender, soft, No ascites, No bowel sounds, No distended, No firm, No hepatomegaly, No mass , No other, No rebound or guarding, No splenomegaly, No surgical scars, No tender Musculoskeletal: nl extremities to inspection Extremities: normal pulses, No calf tenderness, No clubbing, No cyanosis, No edema, No other, No palpable cord, No pitting pedal edema, No tenderness Neurological: EMPLOYMENT SERVICES DIRECTOR II-XII intact, nl mental status, nl speech, nl strength Skin: nl turgor Lymph: nl lymph nodes Results Result Diagram: 06/24/16 0450 06/24/16 0450 Results 24 hrs Laboratory Tests Test 06/25/16 16:54 06/25/16 20:17 06/26/16 03:52 06/26/16 07:41 Bedside Glucose 196 177 147 226 H Test 06/26/16 11:35 Bedside Glucose 276 H Medications Medications Current Medications Lorazepam (Ativan) 0.5 mg Q6H PRN IV ANXIETY; Start 06/23/16 at 18:30 Ondansetron HCl (Zofran Inj) 4 mg Q6H PRN IV NAUSEA AND/OR VOMITING; Start at 18:30 Acetaminophen (Tylenol Tab) 650 mg Q6H PRN PO PAIN LEVEL 1-3 OR FEVER Last administered on 06/24/16t 04:38; Admin Dose 650 MG; Start 06/23/16 at 18:30 Acetaminophen/ Hydrocodone Bitart ([place] (5/325)) 1 tab Q6H PRN PO PAIN LEVEL 4 -6 Last administered on 06/26/16 08:36; Admin Dose 1 TAB; Start 06/23/16 at 18: 30 Morphine Sulfate (morphine) 2 mg Q4H PRN IV PAIN LEVEL 7-10 Last administered on 06/26/16 12:10; Admin Dose 2 MG; Start 06/23/16 at 18:30 Famotidine (Pepcid) 20 mg Q12 PO Last administered on 06/26/16 08:36; Admin Dose 20 MG; Start 06/23/16 at 21:00; Stop 07/07/16 at 20:59 Miscellaneous Information 1 ea NOTE XX ; Start 06/23/16 at 19:00 Glucose (Glutose) 15 gm Q15M PRN PO DECREASED GLUCOSE; Start 06/23/16 at 19:00 Glucose (Glutose) 22.5 gm Q15M PRN PO DECREASED GLUCOSE; Start 06/23/16 at 19: 00 Dextrose (D50w Syringe) 25 ml Q15M PRN IV DECREASED GLUCOSE; Start 06/23/16 at 19:00 Dextrose (D50w Syringe) 50 ml Q15M PRN IV DECREASED GLUCOSE; Start 06/23/16 at 19:00 Glucagon (Glucagen) 1 mg Q15M PRN IM DECREASED GLUCOSE; Start 06/23/16 at 19:00 Glucose 15 gm 15 gm Q15M PRN BUCCAL DECREASED GLUCOSE; Start 06/23/16 at 19:00 Multivitamins/ Thiamine HCl/ Folic Acid/Sodium Chloride (Mvi-12 Adult/ Vitamin B1/Folic Acid/NS) 1,011.2 ml @ 125 mls/ hr DAILY@09 IVPB Last administered on 06/26/16 08:43; Admin Dose 125 MLS/HR; Start 06/24/16 at 09:00 Sertraline HCl (Zoloft) 100 mg DAILY PO Last administered on 06/26/16 08:36; Admin Dose 100 MG; Start 06/24/16 at 09:00 Insulin Glargine (Lantus) 25 unit QHS SC Last administered on 06/25/16 21:15; Admin Dose 25 UNIT; Start 06/24/16 at 21:00 Atorvastatin Calcium (Lipitor) 20 mg HS PO Last administered on 06/25/16t 21:14 ; Admin Dose 20 MG; Start 06/24/16 at 21:00 STARR TELLO MD Jun 26, 2016 14:38
[2016-06-26 19:34] VITALS: BP 130/78; RESP 19
[2016-06-26] MEDS: ATORVASTATIN 20 MG TAB PO SCH (20:48)
[2016-06-26] MEDS ORDERED: INSULIN GLARGINE [LANtus] 3 ML PEN SC SCH (21:00)
[2016-06-27] MEDS: morphine 2 MG INJ IV PRN ×2 (03:27→15:44)
[2016-06-27 07:00] VITALS: BP 126/79; RESP 18
[2016-06-27] MEDS: REPAGLINIDE 2 MG TAB PO SCH ×2 (08:20→12:38)
[2016-06-27] MEDS: FAMOTIDINE 20 MG TAB PO SCH (08:21)
[2016-06-27] MEDS: metFORMIN 500 MG TAB PO SCH (08:21)
[2016-06-27] MEDS: SERTRALINE 100 MG TAB PO SCH (08:21)
[2016-06-27] MEDS: MULTIVITAMINS 10 ML, THIAMINE 100 MG, FOLIC ACID 1 MG in SOD CHLORIDE 0.9% 1,000 ML IVPB SCH (08:21)
[2016-06-27] MEDS: INSULIN ASPART [NOVOLOG] 3 ML PEN SC SCH ×2 (08:24→12:37)
[2016-06-27] MEDS: HYDROCODONE/APAP (5/325) TAB PO PRN (08:35)
[2016-06-27] MEDS ORDERED: ATOR20TA65 PO (14:33)
[2016-06-27] MEDS ORDERED: SERT-165 PO (14:33)
[2016-06-27] MEDS ORDERED: NOVO3I SC (14:33)
[2016-06-27] MEDS ORDERED: REPA2TAB6 PO (14:33)
[2016-06-27] MEDS ORDERED: METF500T PO (14:33)
--- NOTE | 2016-06-27 14:41 | DS ---
Date/Time of Note Date/Time of Note DATE: 06/27/16 TIME: 14:34 Discharge Summary Admission/Discharge Info Admit Date/Time Jun 23, 2016 at 17:30 Discharge Date/Time Final Diagnosis (1) Major depression, suicidal, transfer to psychiatry facility (2) Diabetes mellitus type 2, on metformin and insulins (3) Hyperlipidemia, on statin (4) Overdose, resolved (5) Alcoholism /alcohol abuse Patient Condition: Stable Hospital Course This is a 31-year-old male with past medical history of depression, alcohol abuse, and diabetes mellitus type2 who was brought to the emergency room from because of alcohol intoxication and altered level of consciousness. The patient was noticed to have alcohol level of 122 in the emergency room. The patient was somnolent but awake and was able to answer questions. The patient verbalized that he does not remember what happened before he was brought to the hospital. The patient verbalized that he does not remember how much alcohol he drank. The patient also verbalized that he took "31 tablets of Lorazepam and 10 tablets of Ambien." The patient verbalized that he took these medications because he wanted to "get high." However, the patient's urine drug toxicology was negative for any benzodiazepines. The patient kept on saying "I am not suicidal." However, the patient verbalized that he has been placed on 5150 previously, and he was requesting not to make him a 5150 again. The patient verbalized that he was having some headache. The patient denied any visual or tactile hallucinations. The patient denied any chest pain, nausea, abdominal pain, or diarrhea. The patient was noticed to have multiple skin abrasions on both upper and lower extremities. The patient was unable to give me a complete explanation. 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 The patient was noticed to be hypoglycemic with a glucose of 64. The patient was treated with IV fluids along with IV sodium bicarbonate in the emergency room. Patient's mental status improved with IVF. Patient still has suicidal ideation. He is transferred to psychiatry facility for inpatient care. Home Meds Active Scripts Atorvastatin Calcium (Atorvastatin Calcium) 20 Mg Tablet, 20 MG PO HS for 10 Days, TAB Prov:STARR TELLO MD 06/27/16 Insulin Aspart* (Novolog Insulin Pen*) 100 Unit/Ml Soln, 0 UNIT SC WITH MEALS BEDTIME for 30 Days Prov:STARR TELLO MD 06/27/16 Metformin Hcl (Glucophage) 500 Mg Tablet, 1000 MG PO BID WITH MEALS for 10 Days , TAB Prov:STARR TELLO MD 06/27/16 Repaglinide* (Prandin*) 2 Mg Tablet, 2 MG PO AC MEALS for 10 Days, TAB Prov:STARR TELLO MD 06/27/16 Sertraline Hcl* (Sertraline Hcl*) 100 Mg Tablet, 100 MG PO DAILY for 10 Days, TAB Prov:STARR TELLO MD 06/27/16 Reported Medications Insulin Lispro (Humalog) 100 Unit/1 Ml Cartridge, 20 UNIT SQ BEFORE MEALS 04/06/16 Nph, Human Insulin Isophane (Humulin N) 100 Units/Ml Vial, 20 UNIT SC HS, VIAL 01/06/15 Insulin Glargine* (Lantus*) 100 Unit/Ml Soln, 40 UNIT SC HS, EA 06/22/14 Discontinued Scripts Clotrimazole* (Clotrimazole* AF) 1% - 30 Gm Cream.gm., 1 APPLIC TOP BID for 7 Days, #1 TUB Prov:MICHAEL FULLER PA-C 05/31/16 Follow-up Plan transfer to psychiatry facility Pending Labs Laboratory Tests Test 06/26/16 16:33 06/26/16 19:52 06/27/16 08:00 06/27/16 12:11 Bedside Glucose 246mg/dL (70-220) 163mg/dL (70-220) 221mg/dL (70-220) 227mg/dL (70-220) STARR TELLO MD Jun 27, 2016 14:41
== END 2016-06-27 17:24 | DRG 897 ==
LOC: E/R 15:24 → ICU 17:30 → PP2 06-25 07:40
PROVIDERS: ADMIT Family Medicine; ATTEND Family Medicine
DX: F10.121 Alcohol abuse with intoxication delirium (principal); R45.851 Suicidal ideations; E11.69 Type 2 diabetes mellitus with other specified complication; F33.2 Major depressive disorder, recurrent severe without psychotic features; G31.2 Degeneration of nervous system due to alcohol; F10.229 Alcohol dependence with intoxication, unspecified; R00.0 Tachycardia, unspecified; T43.012A Poisoning by tricyclic antidepressants, intentional self-harm, initial encounter; E78.5 Hyperlipidemia, unspecified; Y90.6 Blood alcohol level of 120-199 mg/100 ml; E66.3 Overweight; Z68.26 Body mass index [BMI] 26.0-26.9, adult; Z79.4 Long term (current) use of insulin; N48.1 Balanitis; E86.0 Dehydration
CPT/HCPCS: 36415; 80053; 80061; 80306; 80307; 81003; 82652; 82962; 83036; 83735; 84100; 84439; 84443; 84484; 85025; 86803; 87081; 87340; 93005; 96361; 96374; J1815; J2270; J3411; J7030; J7070

== ENCOUNTER 2016-07-12 14:53 | Emergency (ER) | payer OTHER ==
[~2016-07-12] VITALS: Wt 90.0 kg
[~2016-07-12 14:53] MED LIST changes: +ATOR20TA65 PO; -CLOT30CR24 TOP; +METF500T PO; +NOVO3I SC; +REPA2TAB6 PO; +SERT-165 PO
--- NOTE | 2016-07-12 15:43 | EN ---
Date/Time of Note Date/Time of Note DATE: 07/12/16 TIME: 15:42 ER Progress Note I evaluated patient in the flu tract. Patient states that he takes trazodone and drink alcohol. Patient would prefer to be seen in the ER. She denies any suicidal ideations. He said he is not suicidal. Patient has been in a mental hospital before and states that he does not have any follow-up for his psychiatric illnesses. PEDRO PABLO HEATH Jul 12, 2016 15:42
[2016-07-12] MEDS ORDERED: SOD CHLORIDE 0.9% 1,000 ML IV STA (18:59)
[2016-07-12] MEDS ORDERED: INSULIN REGULAR, HUMAN 100 UNIT/1 ML 3ML VIAL SC ONE (19:00)
[2016-07-12] MEDS ORDERED: LORAZEPAM 0.5 MG TAB PO ONE (19:00)
[2016-07-12 20:12] VITALS: BP 135/93; PULSE 101; RESP 21; TEMP 98
--- NOTE | 2016-07-12 20:14 | ERD ---
ER Documentation Chief Complaint Date/Time DATE: 07/12/16 TIME: 20:12 Chief Complaint ANXIETY SINCE SUNDAY RAN OUT OF ATIVAN, NEEDS MEDICATION REFILL HPI This is a 31-year-old male who presents to the emergency room for evaluation of anxiety. This patient states that he is on Ativan and ran out of his Ativan on 10 July. The patient presents to the emergency room today for refill on his medication. Patient denies any homicidal or suicidal ideation at this time. ROS All systems reviewed and are negative except as per history of present illness. Medications Home Meds Active Scripts Atorvastatin Calcium (Atorvastatin Calcium) 20 Mg Tablet, 20 MG PO HS for 10 Days, TAB Prov:STARR TELLO MD 06/27/16 Insulin Aspart* (Novolog Insulin Pen*) 100 Unit/Ml Soln, 0 UNIT SC WITH MEALS BEDTIME for 30 Days Prov:STARR TELLO MD 06/27/16 Metformin Hcl (Glucophage) 500 Mg Tablet, 1000 MG PO BID WITH MEALS for 10 Days , TAB Prov:STARR TELLO MD 06/27/16 Repaglinide* (Prandin*) 2 Mg Tablet, 2 MG PO AC MEALS for 10 Days, TAB Prov:STARR TELLO MD 06/27/16 Sertraline Hcl* (Sertraline Hcl*) 100 Mg Tablet, 100 MG PO DAILY for 10 Days, TAB Prov:STARR TELLO MD 06/27/16 Reported Medications Insulin Lispro (Humalog) 100 Unit/1 Ml Cartridge, 20 UNIT SQ BEFORE MEALS 04/06/16 Nph, Human Insulin Isophane (Humulin N) 100 Units/Ml Vial, 20 UNIT SC HS, VIAL 01/06/15 Insulin Glargine* (Lantus*) 100 Unit/Ml Soln, 40 UNIT SC HS, EA 06/22/14 Allergies Allergies: Coded Allergies: No Known Allergy (Verified , 06/23/16) PMhx/Soc History of Surgery: Yes (APPY ) Anesthesia Reaction: No Hx Neurological Disorder: No Hx Respiratory Disorders: No Hx Cardiac Disorders: No Hx Psychiatric Problems: Yes (ANXIETY ) Hx Miscellaneous Medical Probl: Yes (DM ) Hx Alcohol Use: Yes Hx Substance Use: Yes (marijuana ) Hx Tobacco Use: No Smoking Status: Current some day smoker Physical Exam Vitals Vital Signs Date Time Temp Pulse Resp B/P Pulse Ox O2 Delivery O2 Flow Rate FiO2 07/12/16 19:26 66 19 114/84 98 Room Air 07/12/16 19:00 97.7 107 24 121/86 96 Room Air 07/12/16 15:01 98.8 102 22 137/74 97 Physical Exam Const: No acute distress Head: Atraumatic Eyes: Normal Conjunctiva ENT: Normal External Ears, Nose and Mouth. Neck: Full range of motion..~ No meningismus. Resp: Clear to auscultation bilaterally Cardio: Regular rate and rhythm, no murmurs Abd: Soft, non tender, non distended. Normal bowel sounds Skin: No petechiae or rashes Back: No midline or flank tenderness Ext: No cyanosis, or edema Neur: Awake and alert Psych: Anxious affect Results 24 hrs Laboratory Tests Test 07/12/16 18:58 07/12/16 20:08 Bedside Glucose 421mg/dL 330mg/dL Current Medications Medications (Trade) Dose Ordered Sig/Amanda Route PRN Reason Start Time Stop Time Status Last Admin Dose Admin Lorazepam 0.5 mg 0.5 mg ONCE ONCE PO 07/12/16 19:00 07/12/16 19:01 DC 07/12/16 19:10 Sodium Chloride (NS) 1,000 ml @ 1,000 mls/hr Q1H STAT IV 07/12/16 18:59 07/12/16 19:58 DC 07/12/16 19:10 Insulin Human Regular (Humulin R) 12 unit ONCE ONCE SC 07/12/16 19:00 07/12/16 19:01 DC 07/12/16 19:12 Procedures/MDM This 31-year-old male presents to the ER for a refill of his Ativan medication. The patient does have a long-standing history of anxiety. When I evaluated this patient's previous medical record I did note that he was admitted on 23 June for an overdose. The patient states that he was recently at [facility] and was discharged home with medication for high blood sugar however he has not checked it. I did check his blood sugar was greater than 400. An IV was established, the patient was given 12 units of subcutaneous insulin, and was given 1 L fluid along with a 0.5 mg of p.o. Ativan. Upon my reevaluation of this patient this patient's blood sugar is a 330. He is in no acute distress. I advised that I will not be giving him a prescription for Ativan as she does have a previous history of an overdose. The patient will be discharged home with a prescription for hydroxyzine and instructions to follow- up with his primary care physician. He does have a bag with his NovoLog, and other diabetic medication. He states that he is not taking them and states he will take them as prescribed tonight. Departure Diagnosis: Primary Impression: Anxiety Additional Impression: Hyperglycemia Condition: Stable MESSI ORR DO Jul 12, 2016 20:14
[2016-07-12] MEDS ORDERED: HYDR-3010 PO (20:15)
== END 2016-07-12 20:19 | disposition home or self-care (01) ==
LOC: E/R 14:53
DX: F41.9 Anxiety disorder, unspecified (principal); E11.65 Type 2 diabetes mellitus with hyperglycemia; F17.210 Nicotine dependence, cigarettes, uncomplicated; Z79.84 Long term (current) use of oral hypoglycemic drugs; Z79.4 Long term (current) use of insulin
CPT/HCPCS: 82962; 96360; 96372; J1815; J7030; Z7502; Z7610

== ENCOUNTER 2016-11-01 11:45 | Emergency (ER) | payer OTHER ==
[~2016-11-01] VITALS: Ht 188 cm; Wt 89.5 kg
[~2016-11-01 11:45] MED LIST changes: +HYDR-3010 PO
[2016-11-01 11:53] VITALS: Ht 188 cm; Wt 89.5 kg
--- NOTE | 2016-11-01 12:18 | ERD ---
ER Documentation Chief Complaint Date/Time DATE: 11/01/16 TIME: 12:16 Chief Complaint BIB SELF C/O UNABLE TO MOVE LEFT HAND. PT STATES HE WAS DRINKING LAST NIGHT HPI 31-year-old male who is right-hand dominant complains of left-sided wrist and left-sided hand pain since yesterday after refrigerator fell onto it. He was moving a downstairs he states that he was trying to catch and landed on his wrist and hand. He complains of diffuse pain, it starts on the radial aspect of the wrist and goes to his third and fourth digits of the left hand. Is achy , moderate, worse with movement and mild at rest. ROS All systems reviewed and are negative except as per history of present illness. Medications Home Meds Active Scripts Naproxen* (Naprosyn*) 500 Mg Tablet, 500 MG PO BID Y for PAIN AND/OR INFLAMMATION, #30 TAB Prov:TUAN BOYD PA-C 11/01/16 Hydroxyzine Hcl* (Hydroxyzine Hcl*) 10 Mg Tablet, 10 MG PO QID, #12 TAB Prov:MESSI ORR DO 07/12/16 Atorvastatin Calcium (Atorvastatin Calcium) 20 Mg Tablet, 20 MG PO HS for 10 Days, TAB Prov:STARR TELLO MD 06/27/16 Insulin Aspart* (Novolog Insulin Pen*) 100 Unit/Ml Soln, 0 UNIT SC WITH MEALS BEDTIME for 30 Days Prov:STARR TELLO MD 06/27/16 Metformin Hcl (Glucophage) 500 Mg Tablet, 1000 MG PO BID WITH MEALS for 10 Days , TAB Prov:STARR TELLO MD 06/27/16 Repaglinide* (Prandin*) 2 Mg Tablet, 2 MG PO AC MEALS for 10 Days, TAB Prov:STARR TELLO MD 06/27/16 Sertraline Hcl* (Sertraline Hcl*) 100 Mg Tablet, 100 MG PO DAILY for 10 Days, TAB Prov:STARR TELLO MD 06/27/16 Reported Medications Insulin Lispro (Humalog) 100 Unit/1 Ml Cartridge, 20 UNIT SQ BEFORE MEALS 04/06/16 Nph, Human Insulin Isophane (Humulin N) 100 Units/Ml Vial, 20 UNIT SC HS, VIAL 01/06/15 Insulin Glargine* (Lantus*) 100 Unit/Ml Soln, 40 UNIT SC HS, EA 06/22/14 Allergies Allergies: Coded Allergies: No Known Allergy (Verified , 06/23/16) PMhx/Soc History of Surgery: Yes (APPY ) Anesthesia Reaction: No Hx Neurological Disorder: No Hx Respiratory Disorders: No Hx Cardiac Disorders: No Hx Psychiatric Problems: Yes (ANXIETY ) Hx Miscellaneous Medical Probl: Yes (DM ) Hx Alcohol Use: Yes Hx Substance Use: Yes (marijuana ) Hx Tobacco Use: No Physical Exam Vitals Vital Signs Date Time Temp Pulse Resp B/P Pulse Ox O2 Delivery O2 Flow Rate FiO2 11/01/16 11:53 97.7 111 20 115/84 97 Physical Exam General: Well-developed, well-nourished. The patient appears in no acute distress. HEENT: Head is normocephalic, atraumatic. No scleral icterus. Neck: Supple. Nontender. Lungs: Clear to auscultation. Normal air movement. Heart: Regular rate and rhythm. S1 and S2 are normal. No murmurs, gallops, or rubs. Abdomen: Nondistended. Extremities: Radial wrist tenderness, without any bony deformities, there is tenderness over the metacarpal of the left expansion envelope maker hand, the MCP, DIP, PIP joints are nontender, full range of motion, compartments are soft Neurologic: Alert and oriented 3. No focal deficits. Normal speech and gait. Skin: Normal turgor. No rash or lesions. Results 24 hrs Current Medications Medications (Trade) Dose Ordered Sig/Amanda Route PRN Reason Start Time Stop Time Status Last Admin Dose Admin Ibuprofen (Motrin) 600 mg ONCE ONCE PO 11/01/16 12:30 11/01/16 12:31 DC 11/01/16 13:14 Acetaminophen/ Hydrocodone Bitart ([place] (5/325)) 1 tab ONCE ONCE PO 11/01/16 13:30 11/01/16 13:31 DC 11/01/16 13:31 DIAGNOSTIC IMAGING REPORT Patient: JT EASTON : 1985 Age: 31 Sex: M MR #: [id number] DOS: 11/01/16 1326 Ordering MD: TUAN BOYD PA-C Location: [facility] Room/Bed: PROCEDURE: XR Forearm 2 Views. CLINICAL INDICATION: Left forearm pain and trauma. TECHNIQUE: AP and lateral views of the left forearm were obtained. COMPARISON: No prior studies are available for comparison. FINDINGS: The osseous structures are intact. No destructive bony lesions are identified. Interosseous spaces appear normal. Small enthesophyte projects from the posterior aspect of the olecranon. The soft tissues are unremarkable. IMPRESSION: No visualized traumatic injury. Small enthesophyte that projects from the posterior aspect of the olecranon. Finding could be the sequelae of tendonitis. If there is high clinical suspicion for traumatic injury, further evaluation with CT should be considered. RPTAT: AA .Rosendo Zepeda MD, Date Time Electronically viewed and signed by .Rosendo Zepeda MD, MD on 11/01/2016 14:28 .P/ CC: TUAN BOYD PA-C DIAGNOSTIC IMAGING REPORT Patient: JT EASTON : 1985 Age: 31 Sex: M MR #: [id number] DOS: 11/01/16 1215 Ordering MD: TUAN BOYD PA-C Location: [facility] Room/Bed: PROCEDURE: XR left Hand. CLINICAL INDICATION: Left hand pain TECHNIQUE: Three views of the left hand were obtained. COMPARISON: No prior studies are available for comparison. FINDINGS: There is cortical irregularity at the ulnar styloid that is likely from a remote fracture. No definite acute fracture is identified. There is peripheral bone remodelling/erosion along the ulnar aspect of the head and base of the first proximal phalanx and the base of the first metacarpal, a nonspecific finding. The soft tissues appear grossly unremarkable. Remaining joint spaces are preserved. IMPRESSION: 1. No definite radiographic evidence of acute osseous abnormality noting cortical irregularity at the ulnar styloid likely from a remote fracture. 2. Well-marginated probable erosive changes along the ulnar aspect of the head and base of the first proximal phalanx as well as the base of the first metacarpal. These are nonspecific but could consider gout or other inflammatory arthritis, to be correlated clinically. RPTAT: UU .Angelo Connell MD, MD Date Time Electronically viewed and signed by .Angelo Connell MD, MD on 11/01/2016 13: 06 .K/ CC: TUAN BOYD PA-C DIAGNOSTIC IMAGING REPORT Patient: JT EASTON : 1985 Age: 31 Sex: M MR #: [id number] DOS: 11/01/16 1215 Ordering MD: TUAN BOYD PA-C Location: [facility] Room/Bed: PROCEDURE: XR Wrist 4 Views. CLINICAL INDICATION: Left wrist pain and trauma. TECHNIQUE: AP, oblique, scaphoid and lateral views of the left wrist were performed. COMPARISON: No prior studies are available for comparison. FINDINGS: Diffuse osteopenia is identified. The osseous structures appear intact. No destructive bony lesions are identified. Interosseous spaces are grossly unremarkable. Soft tissues surrounding the wrist are unremarkable. IMPRESSION: No visualized traumatic injury. Osteopenia.. If there is high clinical suspicion for traumatic injury, further evaluation with CT should be considered. RPTAT: AA .Rosendo Zepeda MD, MD Date Time Electronically viewed and signed by .Rosendo Zepeda MD, MD on 11/01/2016 13:07 .P/ CC: TUAN BOYD PA-C Procedures/MDM ED course: Patient was given Motrin. He is continued to complain of pain, and he was given [place], I reassessed patient was sleeping in the waiting room with his arms crossed. He was given a Velcro wrist splint to help for pain. Medical decision making: This is a 31-year-old male comes in with traumatic left hand pain, consistent with a sprain. There is no evidence of fracture, signs of compartment syndrome, DVT, cellulitis, infectious origin. Departure Diagnosis: Primary Impression: Injury of hand Condition: Good TUAN BOYD PA-C Nov 01, 2016 12:18
[2016-11-01] MEDS ORDERED: IBUPROFEN 600 MG TAB PO ONE (12:30)
--- NOTE | 2016-11-01 13:06 | RADRPT ---
PROCEDURE: XR left Hand. CLINICAL INDICATION: Left hand pain TECHNIQUE: Three views of the left hand were obtained. COMPARISON: No prior studies are available for comparison. FINDINGS: There is cortical irregularity at the ulnar styloid that is likely from a remote fracture. No defin ite acute fracture is identified. There is peripheral bone remodelling/erosion along the ulnar aspe ct of the head and base of the first proximal phalanx and the base of the first metacarpal, a nonspe cific finding. The soft tissues appear grossly unremarkable. Remaining joint spaces are preserved. IMPRESSION: 1. No definite radiographic evidence of acute osseous abnormality noting cortical irregularity at t he ulnar styloid likely from a remote fracture. 2. Well-marginated probable erosive changes along the ulnar aspect of the head and base of the firs t proximal phalanx as well as the base of the first metacarpal. These are nonspecific but could cons ider gout or other inflammatory arthritis, to be correlated clinically. RPTAT: UU .Angelo Connell MD, MD Date Time Electronically viewed and signed by .Angelo Connell MD, on 11/01/2016 13:06 .K/
--- NOTE | 2016-11-01 13:07 | RADRPT ---
PROCEDURE: XR Wrist 4 Views. CLINICAL INDICATION: Left wrist pain and trauma. TECHNIQUE: AP, oblique, scaphoid and lateral views of the left wrist were performed. COMPARISON: No prior studies are available for comparison. FINDINGS: Diffuse osteopenia is identified. The osseous structures appear intact. No destructive bony lesion s are identified. Interosseous spaces are grossly unremarkable. Soft tissues surrounding the wrist are unremarkable. IMPRESSION: No visualized traumatic injury. Osteopenia.. If there is high clinical suspicion for traumatic injury, further evaluation with CT should be consi dered. RPTAT: AA .Rosendo Zepeda MD, Date Time Electronically viewed and signed by .Rosendo Zepeda MD, on 11/01/2016 13:07 .P/
[2016-11-01] MEDS ORDERED: HYDROCODONE/APAP (5/325) TAB PO ONE (13:30)
--- NOTE | 2016-11-01 14:29 | RADRPT ---
PROCEDURE: XR Forearm 2 Views. CLINICAL INDICATION: Left forearm pain and trauma. TECHNIQUE: AP and lateral views of the left forearm were obtained. COMPARISON: No prior studies are available for comparison. FINDINGS: The osseous structures are intact. No destructive bony lesions are identified. Interosseous spaces appear normal. Small enthesophyte projects from the posterior aspect of the olecranon. The soft t issues are unremarkable. IMPRESSION: No visualized traumatic injury. Small enthesophyte that projects from the posterior aspect of the olecranon. Finding could be the s equelae of tendonitis. If there is high clinical suspicion for traumatic injury, further evaluation with CT should be consi dered. RPTAT: AA .Rosendo Zepeda MD, Date Time Electronically viewed and signed by .Rosendo Zepeda MD, MD on 11/01/2016 14:28 .P/
[2016-11-01] MEDS ORDERED: NAPR-260 PO (14:41)
== END 2016-11-01 14:49 | disposition home or self-care (01) ==
LOC: FTE 11:45
DX: S69.92XA Unspecified injury of left wrist, hand and finger(s), initial encounter (principal); E11.9 Type 2 diabetes mellitus without complications; W20.8XXA Other cause of strike by thrown, projected or falling object, initial encounter; Y92.9 Unspecified place or not applicable; Z79.4 Long term (current) use of insulin; Z79.84 Long term (current) use of oral hypoglycemic drugs
CPT/HCPCS: 29125; 73090; 73110; 73130; Z7502; Z7610

== ENCOUNTER 2016-11-12 03:25 | Emergency (ER) | payer OTHER ==
[~2016-11-12] VITALS: Ht 185.4 cm; Wt 88.0 kg
[~2016-11-12 03:25] MED LIST changes: +NAPR-260 PO
[2016-11-12 03:48] VITALS: Ht 185.4 cm; Wt 88.0 kg
[2016-11-12] MEDS ORDERED: INSULIN LISPRO 100 UNIT/ML VIAL SC STA ×6 (04:21→20:04)
[2016-11-12] MEDS ORDERED: SOD CHLORIDE 0.9% 1,000 ML IV STA ×2 (04:21→20:04)
--- NOTE | 2016-11-12 04:21 | ERD ---
ER Documentation Chief Complaint Date/Time DATE: 11/12/16 TIME: 04:13 Chief Complaint Pt reports he feels his sugar is high, and he drank 4-24oz beers HPI 31-year-old man complains of suicidality and states he is extremely impulsive right now. He does have a history of psychiatric illness and has not been using his psychiatric medication. He states since that he has been drinking alcohol. He denies fevers or chills, no chest pain or shortness of breath, no headache or blurry vision. Patient also has a history of diabetes mellitus and has not been using his insulin. ROS All systems reviewed and are negative except as per history of present illness. Medications Home Meds Active Scripts Naproxen* (Naprosyn*) 500 Mg Tablet, 500 MG PO BID Y for PAIN AND/OR INFLAMMATION, #30 TAB Prov:TUAN BOYD PA-C 11/01/16 Hydroxyzine Hcl* (Hydroxyzine Hcl*) 10 Mg Tablet, 10 MG PO QID, #12 TAB Prov:MESSI ORR DO 07/12/16 Atorvastatin Calcium (Atorvastatin Calcium) 20 Mg Tablet, 20 MG PO HS for 10 Days, TAB Prov:STARR TELLO MD 06/27/16 Insulin Aspart* (Novolog Insulin Pen*) 100 Unit/Ml Soln, 0 UNIT SC WITH MEALS BEDTIME for 30 Days Prov:STARR TELLO MD 06/27/16 Metformin Hcl (Glucophage) 500 Mg Tablet, 1000 MG PO BID WITH MEALS for 10 Days , TAB Prov:STARR TELLO MD 06/27/16 Repaglinide* (Prandin*) 2 Mg Tablet, 2 MG PO AC MEALS for 10 Days, TAB Prov:STARR TELLO MD 06/27/16 Sertraline Hcl* (Sertraline Hcl*) 100 Mg Tablet, 100 MG PO DAILY for 10 Days, TAB Prov:STARR TELLO MD 06/27/16 Reported Medications Insulin Lispro (Humalog) 100 Unit/1 Ml Cartridge, 20 UNIT SQ BEFORE MEALS 04/06/16 Nph, Human Insulin Isophane (Humulin N) 100 Units/Ml Vial, 20 UNIT SC HS, VIAL 01/06/15 Insulin Glargine* (Lantus*) 100 Unit/Ml Soln, 40 UNIT SC HS, EA 06/22/14 Allergies Allergies: Coded Allergies: No Known Allergy (Verified , 06/23/16) PMhx/Soc Depression, previous suicidality with overdose, diabetes mellitus, hypertension , dyslipidemia, alcoholism History of Surgery: Yes (APPY ) Anesthesia Reaction: No Hx Neurological Disorder: No Hx Respiratory Disorders: No Hx Cardiac Disorders: No Hx Psychiatric Problems: Yes (ANXIETY ) Hx Miscellaneous Medical Probl: Yes (DM ) Hx Alcohol Use: Yes Hx Substance Use: Yes (marijuana ) Hx Tobacco Use: No FmHx Family History: diabetes Physical Exam Vitals Vital Signs Date Time Temp Pulse Resp B/P Pulse Ox O2 Delivery O2 Flow Rate FiO2 11/12/16 03:48 97.3 118 18 119/78 94 Physical Exam GENERAL: Well-developed, well-nourished, depressed and anxious HEENT: Moist mucous membranes, pink conjunctiva, no cervical spine tenderness or step-off deformities, no goiter, no jaundice or icterus, extraocular movements intact without pain. No submandibular induration, and no pharyngeal erythema NEURO: Alert and oriented 3, cranial nerves II through XII intact bilaterally, pupils equal round reactive to light, no focal deficits or facial asymmetry, sensation intact distally Strength 5/5 in upper and lower extremities bilaterally CARDIAC: Tachycardic and regular, no murmurs rubs or gallops LUNGS: Clear bilaterally no wheezing crackles or stridor ABDOMEN: Soft nontender, no guarding, no rigidity, no rebound, no psoas sign no obturator sign. Normoactive bowel sounds SKIN: Warm and dry to touch, no abrasions, contusions, or hematomas, no lacerations, no ecchymosis, no target lesions, and without ulcers EXTREMITIES: No clubbing cyanosis or edema, calves are bilaterally symmetrical, no Homans sign, no popliteal cord sign. Distal pulses equal and bilateral PSYCH: Depressed affect Results 24 hrs Laboratory Tests Test 11/12/16 04:40 Bedside Glucose 547mg/dL Current Medications Medications (Trade) Dose Ordered Sig/Amanda Route PRN Reason Start Time Stop Time Status Last Admin Dose Admin Insulin Human Lispro 12 unit 12 unit ONCE STAT SC 11/12/16 04:21 11/12/16 04:30 DC 11/12/16 04:48 Sodium Chloride (NS) 1,000 ml @ 1,000 mls/hr Q1H STAT IV 11/12/16 04:21 11/12/16 05:20 Lorazepam (Ativan) 1 mg ONCE STAT IV 11/12/16 04:22 11/12/16 04:30 DC Procedures/MDM IV line was established patient was placed on rock lather rhythm strip revealed a sinus tachycardia at 120 bpm with upright P and T waves. Patient was afebrile. Security one-to-one watch was established given the patient's psychiatric symptoms. I administered 1 L normal saline intravenously, lorazepam 1mg IV. For hyperglycemia patient received 14 units subcutaneous insulin Alcohol level was elevated, aspirin Tylenol levels negative, drug screen is pending I will follow-up. Urine analysis was negative for infection. CBC and electrolytes are normal, liver function tests normal. Blood sugar was elevated. After above interventions blood sugar was rechecked and was lower. His symptoms have improved although he remains suicidal he will be evaluated by PET for inpatient BHU management. Patient's behavioral symptoms have stabilized while in the department. Patient is medically cleared and appropriate for psychiatric evaluation and work up. No e/o neurologic, toxic, infectious, or metabolic cause. Departure Diagnosis: Primary Impression: Alcoholic intoxication Complication of substance-induced condition: uncomplicated Qualified Code: F10.120 - Alcoholic intoxication, uncomplicated Additional Impressions: Hyperglycemia Depression Depression Type: major depressive disorder Major depression recurrence: single episode Active/Remission status: currently active Major depression episode severity: moderate Qualified Code: F32.1 - Moderate single current episode of major depressive disorder Suicidal ideation Condition: PAL Soto MD Nov 12, 2016 04:20
[2016-11-12] MEDS ORDERED: LORAZEPAM 2 MG INJ IV STA (04:22)
[2016-11-12 05:41] LABS: ADD SCAN DIFF NO
[2016-11-12 05:46] LABS: ADD UMIC NO; UR ASCORBIC ACID NEGATIVE (NEGATIVE); UR BILIRUBIN (Dip) NEGATIVE (NEGATIVE); UR BLOOD (Dip) NEGATIVE (NEGATIVE); UR CLARITY CLEAR (CLEAR); UR COLOR STRAW (YELLOW); UR GLUCOSE (Dip) 3+ mg/dL (NEGATIVE); UR KETONES (Dip) 1+ mg/dL (NEGATIVE); UR LEUKOCYTE ESTERASE (Dip) NEGATIVE Leu/ul (NEGATIVE); UR NITRITE (Dip) NEGATIVE (NEGATIVE); UR SPECIFIC GRAVITY (Dip) 1.024 (1.003-1.030); UR TOTAL PROTEIN (Dip) NEGATIVE (NEGATIVE); UR UROBILINOGEN (Dip) NEGATIVE (NEGATIVE)
--- NOTE | 2016-11-12 05:52 | PSY ---
Date/Time of Note Date/Time of Note DATE: 11/12/16 TIME: 05:51 Psychiatric Subjective Eval Consent Pt consented to telemedicine: Yes Subjective Evaluation Patient location: emergency Chief Complaint: Pt reports he feels his sugar is high, and he drank 4-24oz beers Medical history Problems Medical Problems: (1) Alcohol withdrawal Status: Acute (2) Alcoholic intoxication Status: Resolved (3) Alcoholism /alcohol abuse Status: Chronic (4) Anxiety Status: Acute (5) Balanitis Status: Acute (6) Dehydration Status: Acute (7) Depression Status: Acute (8) Diabetes mellitus type 2 in obese Status: Chronic (9) Hyperglycemia Status: Acute (10) Hyperglycemia Status: Acute (11) Hyperlipidemia Status: Chronic (12) Hypoglycemia Status: Acute (13) Injury of hand Status: Acute (14) Major depressive disorder with current active episode Status: Chronic (15) Overdose Status: Resolved (16) Overweight Status: Chronic (17) Palpitations Status: Acute (18) Suicidal ideation Status: Acute (19) Suicidal ideation Status: Acute (20) Tricyclic antidepressant poisoning Status: Acute (21) Vomiting Status: Acute Allergies: Coded Allergies: No Known Allergy (Verified , 06/23/16) Psychiatric Objective Eval Mental Status Examination: Laboratory Results Laboratory Tests Test 11/12/16 04:40 11/12/16 05:15 Bedside Glucose 547mg/dL Urine Color STRAW Urine Clarity CLEAR Urine pH 6.0 Urine Specific [place] 1.024 Urine Ketones 1+mg/dL Urine Nitrite NEGATIVEmg/dL Urine Bilirubin NEGATIVEmg/dL Urine Urobilinogen NEGATIVEmg/dL Urine Leukocyte Esterase NEGATIVELeu/ul Urine Hemoglobin NEGATIVEmg/dL Urine Glucose 3+mg/dL Urine Total Protein NEGATIVEmg/dl Assessment Additional comments: IDENTIFYING INFORMATION: 31 year old Male patient who is currently located at the hospital and for whom psychiatric consultation was requested. SOURCES OF INFORMATION: The patient who appears to be reliable and the medical records; the nursing staff. CHIEF COMPLAINT: "up and down". HISTORY OF PRESENT ILLNESS: The patient was interviewed via telemedicine in the presence of and under the supervision of nursing staff of the hospital. The consent to conducting this interview via telemedicine was obtained by the nursing staff at the hospital. FIDENCIO Cornejo reports that the patient presents with SI, wants to go to sleep and not wake up. Is not on a hold. The patient reports that he is charismatic, has been impulsive, cant concentrate, and has had insomnia. Admits to wishing for and preying for his own . Reports that he thought of taking an OD lately. Admits to feeling depressed, having anhedonia, insomnia, fatigue. Admits to seeing bugs at times. Denies having AH, delusions. The patient reports drinking 2-3 drinks per day lately. Last drink was tonight. The patient denies having a history of serious alcohol withdrawal, with symptoms including seizures, delirium tremens, visual hallucinations, and denies having alcohol withdrawal related hospitalizations. The patient denies using any other substances. In terms of past psychiatric history, the patient reports having a history of past psychiatric hospitalizations. The patient reports having a history of past suicide attempts; last time was an OD on medications. PAST MEDICAL HISTORY: DM. CURRENT MEDICATIONS: none. ALLERGIES TO MEDICATIONS: NKDA. SOCIAL HISTORY: Lives with mother, single, no children; Employed at a restaurant; LABORATORY TESTS: pending. REVIEW OF SYSTEMS: Constitutional (e.g., fever, weight loss): negative; Eyes, Ears, Nose, Mouth, Throat: negative; Cardiovascular: negative; Respiratory: negative; Gastrointestinal: negative; Genitourinary: negative; Musculoskeletal: negative; Integumentary (skin and/or breast): negative; Neurological: negative; Psychiatric: as per HPI; Endocrine: negative; Hematologic/Lymphatic: negative; Allergic/Immunologic: negative. MENTAL STATUS EXAMINATION: General Appearance and Behavior: Calm, cooperative with the interview, pleasant with the current interviewer, makes poor eye contact, poorly groomed, no abnormal movements noted. Speech: Slow rate, regular rhythm, increased latency, low volume. Flow of thought: sequential, logical, goal-directed. Content of thought: no auditory hallucinations, no visual hallucinations, no delusions, positive for suicidal ideation; no homicidal ideation. Mood: "depressed". Affect: dysthymic, dysphoric, not reactive. Attention: normal based on the interview. Insight: fair. Judgment: poor. Memory: normal based on the interview. Sensorium: alert and oriented to person, place and date. ASSESSMENT: The patient's presentation and history are consistent with the diagnosis of unspecified depressive disorder, alcohol use disorder. Pt presents with depressive symptoms in the context of medication noncompliance and alcohol use. Anita I: unspecified depressive disorder, alcohol use disorder. Anita II: Deferred. Anita III: see PMH. Anita IV: social stressors. Anita V: GAF: 10. PLAN: - Medication management: Would recommend starting alcohol withdrawal protocol per MARY. Would also consider administering thiamine, folic acid, multivitamin.Would start sertraline 50 mg po qday. Would start haloperidol 5 mg IM PRN severe agitation q4 hours. Would start diphenhydramine 50 mg IM PRN severe agitation q4 hours. Would start lorazepam 2 mg IM PRN severe agitation q4 hours Will defer to the inpatient psychiatry team for other medication changes. - Labs: Please check CBC, CMP, alcohol level, UDS . - Disposition: Would recommend involuntary admission to the inpatient psychiatric unit given the severity of the patient's psychiatric condition and the fact that the patient is an imminent danger to self and/or others so long as the patient has been cleared medically for admission to psychiatry. Inpatient psychiatric admission is at this time the least restrictive environment where the patient can receive the psychiatric care that is needed. Would place on suicide precautions. Of note, the patient is in agreement with the above plan. Pt would prefer to go [facility]. Discussed about the above plan with Dr. Perry. MELISSA RODRIGUEZ MD Nov 12, 2016 05:52
[2016-11-12 06:02] LABS: ALBUMIN 5.2 g/dl (3.3-4.9); ALBUMIN/GLOBULIN RATIO 2.16; BILIRUBIN,INDIRECT 0.2 mg/dl (0-1.1); BILIRUBIN,TOTAL 0.2 mg/dl (0.2-1.3); CALCIUM 9.4 mg/dl (8.4-10.2); POTASSIUM 4.1 mmol/L (3.5-5.1); TOTAL PROTEIN 7.6 g/dl (6.1-8.1)
[2016-11-12 06:57] LABS: BASOPHIL # 0.1 10^3/ul (0.0-0.1); BASOPHILS % 1.1 % (0.0-2.0); EOSINOPHILS # 0.4 10^3/ul (0.0-0.5); EOSINOPHILS % 5.4 % (0.0-7.0); HEMATOCRIT 42.8 % (42.0-52.0); LYMPHOCYTES # 2.7 10^3/ul (0.8-2.9); LYMPHOCYTES % 41.6 % (15.0-51.0); MEAN CORPUSCULAR VOLUME 82.9 fl (82.0-101.0); MEAN PLATELET VOLUME 9.7 fl (7.4-10.4); MONOCYTE # 0.5 10^3/ul (0.3-0.9); MONOCYTES % 7.9 % (0.0-11.0); NEUTROPHIL # 2.8 10^3/ul (1.6-7.5); NEUTROPHILS % 43.2 % (39.0-77.0); PLATELET COUNT 176 10^3/UL (140-415); RED BLOOD COUNT 5.16 10^6/ul (4.70-6.10); RED CELL DISTRIBUTION WIDTH 12.3 % (11.5-14.5); WHITE BLOOD COUNT 6.5 10^3/ul (4.8-10.8)
[2016-11-12 06:58] LABS: MEAN CORPUSCULAR HGB CONC 37.4 g/dl (32.0-37.0)
[2016-11-12 09:06] LABS: CANNABINOIDS Negative (NEGATIVE)
[2016-11-12 09:08] LABS: BARBITURATES Negative (NEGATIVE); BENZODIAZEPINES Negative (NEGATIVE); COCAINE Negative (NEGATIVE); OPIATES Negative (NEGATIVE)
[2016-11-12 09:14] LABS: ACETAMINOPHEN < 10.0 ug/ml (10.0-30.0); SALICYLATE < 1.0 mg/dl (5.0-30.0)
[2016-11-12 20:43] VITALS: BP 135/92; PULSE 98; RESP 16; TEMP 98.7
== END 2016-11-12 22:36 ==
LOC: E/R 03:25
DX: F10.120 Alcohol abuse with intoxication, uncomplicated (principal); F32.1 Major depressive disorder, single episode, moderate; R45.851 Suicidal ideations; I10 Essential (primary) hypertension; Z79.4 Long term (current) use of insulin; Z79.84 Long term (current) use of oral hypoglycemic drugs
CPT/HCPCS: 36415; 80053; 80306; 80307; 81003; 82962; 83690; 85025; 96372; 96374; J1815; J2060; J7030; Z7502

== ENCOUNTER 2017-03-19 17:48 | Inpatient (IN) | payer OTHER ==
[~2017-03-19] VITALS: Ht 182.9 cm; Wt 91.0 kg
[2017-03-19 18:16] VITALS: Ht 182.9 cm; Wt 91.0 kg
[2017-03-19 19:20] VITALS: TEMP 98.5
[2017-03-19 19:21] LABS: BASOPHIL # 0.1 10^3/ul (0.0-0.1); EOSINOPHILS # 0.3 10^3/ul (0.0-0.5); EOSINOPHILS % 4.8 % (0.0-7.0); HEMATOCRIT 45.1 % (42.0-52.0); HEMOGLOBIN 16.6 g/dl (14.0-18.0); LYMPHOCYTES # 2.6 10^3/ul (0.8-2.9); LYMPHOCYTES % 44.6 % (15.0-51.0); MEAN CORPUSCULAR HEMOGLOBIN 30.9 pg (29.0-33.0); MEAN CORPUSCULAR HGB CONC 36.8 g/dl (32.0-37.0); MEAN PLATELET VOLUME 9.5 fl (7.4-10.4); MONOCYTE # 0.6 10^3/ul (0.3-0.9); MONOCYTES % 10.6 % (0.0-11.0); NEUTROPHIL # 2.2 10^3/ul (1.6-7.5); NEUTROPHILS % 38.5 % (39.0-77.0); PLATELET COUNT 207 10^3/UL (140-415); RED BLOOD COUNT 5.37 10^6/ul (4.70-6.10); RED CELL DISTRIBUTION WIDTH 11.9 % (11.5-14.5); WHITE BLOOD COUNT 5.8 10^3/ul (4.8-10.8)
[2017-03-19 19:57] LABS: CALCIUM 10.4 mg/dl (8.4-10.2); CREATININE 0.72 mg/dl (0.61-1.24); POTASSIUM 3.6 mmol/L (3.5-5.1)
[2017-03-19] MEDS ORDERED: ONDANSETRON 4 MG INJ IV PRN (21:30)
[2017-03-19] MEDS ORDERED: ACETAMINOPHEN 325 MG TAB PO PRN (21:30)
[2017-03-19] MEDS ORDERED: DEXTROSE 50% 50 ML SYRINGE IV ONE ×2 (21:30→22:30)
[2017-03-19 21:47] LABS: ADD UMIC YES; UR ASCORBIC ACID NEGATIVE (NEGATIVE); UR BILIRUBIN (Dip) NEGATIVE (NEGATIVE); UR BLOOD (Dip) NEGATIVE (NEGATIVE); UR CLARITY CLEAR (CLEAR); UR COLOR YELLOW (YELLOW); UR GLUCOSE (Dip) 3+ mg/dL (NEGATIVE); UR KETONES (Dip) 1+ mg/dL (NEGATIVE); UR LEUKOCYTE ESTERASE (Dip) NEGATIVE Leu/ul (NEGATIVE); UR NITRITE (Dip) NEGATIVE (NEGATIVE); UR RBC 0 /HPF (0-5); UR SPECIFIC GRAVITY (Dip) 1.032 (1.003-1.030); UR TOTAL PROTEIN (Dip) 2+ mg/dl (NEGATIVE); UR UROBILINOGEN (Dip) NEGATIVE (NEGATIVE)
[2017-03-19] MEDS ORDERED: DEXTROSE 10% 1,000 ML IV STA (22:06)
--- NOTE | 2017-03-19 22:18 | ERD ---
ER Documentation Chief Complaint Chief Complaint per pt took 60Units of humalog insulin instead of 20, felt like sugar HI HPI This 32-year-old male presents for taking triple his normal insulin dose of 20 units of Humalog. He did so because he thought his sugar was high. He says he does not usually do anything like this he felt lightheaded and dizzy and jittery and thought her sugar must be high. Since then he has felt more lightheaded and dizzy. Denies chest pain, shortness of breath, nausea or vomiting. ROS All systems reviewed and are negative except as per history of present illness. Medications Home Meds Active Scripts Naproxen* (Naprosyn*) 500 Mg Tablet, 500 MG PO BID Y for PAIN AND/OR INFLAMMATION, #30 TAB Prov:TUAN BOYD PA-C 11/01/16 Hydroxyzine Hcl* (Hydroxyzine Hcl*) 10 Mg Tablet, 10 MG PO QID, #12 TAB Prov:MESSI ORR DO 07/12/16 Atorvastatin Calcium (Atorvastatin Calcium) 20 Mg Tablet, 20 MG PO HS for 10 Days, TAB Prov:STARR TELLO MD 06/27/16 Insulin Aspart* (Novolog Insulin Pen*) 100 Unit/Ml Soln, 0 UNIT SC WITH MEALS BEDTIME for 30 Days Prov:STARR TELLO MD 06/27/16 Metformin Hcl (Glucophage) 500 Mg Tablet, 1000 MG PO BID WITH MEALS for 10 Days , TAB Prov:STARR TELLO MD 06/27/16 Repaglinide* (Prandin*) 2 Mg Tablet, 2 MG PO AC MEALS for 10 Days, TAB Prov:STARR TELLO MD 06/27/16 Sertraline Hcl* (Sertraline Hcl*) 100 Mg Tablet, 100 MG PO DAILY for 10 Days, TAB Prov:STARR TELLO MD 06/27/16 Reported Medications Insulin Lispro (Humalog) 100 Unit/1 Ml Cartridge, 20 UNIT SQ BEFORE MEALS 04/06/16 Nph, Human Insulin Isophane (Humulin N) 100 Units/Ml Vial, 20 UNIT SC HS, VIAL 01/06/15 Insulin Glargine* (Lantus*) 100 Unit/Ml Soln, 40 UNIT SC HS, EA 06/22/14 Allergies Allergies: Coded Allergies: No Known Allergy (Verified , 06/23/16) PMhx/Soc Medical and Surgical Hx: pt denies Surgical Hx History of Surgery: No Anesthesia Reaction: No Hx Neurological Disorder: No Hx Respiratory Disorders: No Hx Cardiac Disorders: No Hx Psychiatric Problems: No Hx Miscellaneous Medical Probl: Yes (PT STATES CONFUSION, CANNOT RELAY MEDICAL HISTORY) Hx Alcohol Use: No Hx Substance Use: No Hx Tobacco Use: No Smoking Status: Never smoker Physical Exam Vitals Vital Signs Date Time Temp Pulse Resp B/P Pulse Ox O2 Delivery O2 Flow Rate FiO2 03/19/17 19:20 98.5 114 14 134/102 93 Room Air 03/19/17 18:16 99.1 140 20 131/80 97 Physical Exam Const: [] Moderate distress, appears uncomfortable Head: Atraumatic Eyes: Normal Conjunctiva ENT: Normal External Ears, Nose and Mouth. Neck: Full range of motion..~No JVD Resp: Clear to auscultation bilaterally Cardio: Regular tachycardia, no murmurs Abd: Soft, non tender, non distended. Normal bowel sounds Skin: No petechiae or rashes Back: No midline or flank tenderness Ext: No cyanosis, or edema Neur: Awake and alert 3, cranial nerves II through XII intact, no focal deficits, Psych: Appears somewhat anxious Result Diagram: 03/19/17185703/19/171857 Results 24 hrs Laboratory Tests Test 03/19/17 18:14 03/19/17 18:53 03/19/17 18:58 03/19/17 19:58 Bedside Glucose 214mg/dL 100mg/dL 78mg/dL White Blood Count 5.810^3/ul Red Blood Count 5.3710^6/ul Hemoglobin 16.6g/dl Hematocrit 45.1% Mean Corpuscular Volume 84.0fl Mean Corpuscular Hemoglobin 30.9pg Mean Corpuscular Hemoglobin Concent 36.8g/dl Red Cell Distribution Width 11.9% Platelet Count 34900^3/UL Mean Platelet Volume 9.5fl Neutrophils % 38.5% Lymphocytes % 44.6% Monocytes % 10.6% Eosinophils % 4.8% Basophils % 1.0% Nucleated Red Blood Cells % 0.0/100WBC Neutrophils # 2.210^3/ul Lymphocytes # 2.610^3/ul Monocytes # 0.610^3/ul Eosinophils # 0.310^3/ul Basophils # 0.110^3/ul Nucleated Red Blood Cells # 0.010^3/ul Sodium Level 145mmol/L Potassium Level 3.6mmol/L Chloride Level 106mmol/L Carbon Dioxide Level 26mmol/L Anion Gap 17 Blood Urea Nitrogen 17mg/dl Creatinine 0.72mg/dl Glucose Level 88mg/dl Calcium Level 10.4mg/dl Test 03/19/17 21:16 03/19/17 21:20 Bedside Glucose 85mg/dL Urine Color YELLOW Urine Clarity CLEAR Urine pH 6.0 Urine Specific [place] 1.032 Urine Ketones 1+mg/dL Urine Nitrite NEGATIVEmg/dL Urine Bilirubin NEGATIVEmg/dL Urine Urobilinogen NEGATIVEmg/dL Urine Leukocyte Esterase NEGATIVELeu/ul Urine Microscopic RBC 0/HPF Urine Microscopic WBC 1/HPF Urine Hemoglobin NEGATIVEmg/dL Urine Glucose 3+mg/dL Urine Total Protein 2+mg/dl Current Medications Medications (Trade) Dose Ordered Sig/Amanda Route PRN Reason Start Time Stop Time Status Last Admin Dose Admin Dextrose (D50w Syringe) 50 ml ONCE ONCE IV 03/19/17 21:30 03/19/17 21:31 DC 03/19/17 21:18 Ondansetron HCl (Zofran Inj) 4 mg ER BRIDGE PRN IV NAUSEA AND/OR VOMITING 03/19/17 21:30 03/20/17 21:29 03/19/17 21:18 Acetaminophen (Tylenol Tab) 650 mg ER BRIDGE PRN PO MILD PAIN/FEVER 03/19/17 21:30 03/20/17 21:29 Procedures/MDM Insulin overdose with marketed symptoms and significant tachycardia which has increased since his arrival. Been closely monitored and sugars been checked every hour more. Patient sugar initially decreased from 213 down to 100 fairly quickly. Was then given dextrose 50% 1 ampule. He did decrease after that. I started him on dextrose 10. He will need to be admitted for continued monitoring of his sugars and heart rate. No signs of cardiac ischemia currently. Being admitted to ICU by panel Dr. Alfred EKG interpretation: Sinus tachycardia, bifascicular block, no ST or T-wave changes concerning for acute ischemia, QTC of 493, abnormal EKG. manager monitoring interpretation: Sinus tachycardia which has increased. No other arrhythmias Critical care time greater than 35 minutes: This includes treatment of emergent insulin overdose, decreasing sugars after amps of dextrose, use of D10, careful monitoring, chart reviewed, multiple visits patient's room to assess his Cardiologic neuro status, discussion with patient admitting doctor. This does not include any billable procedures Departure Diagnosis: Primary Impression: Insulin overdose Additional Impression: Tachycardia Condition: Critical ARIE QUINTANILLA DO Mar 19, 2017 22:18
[2017-03-19] MEDS ORDERED: QUET200T27 PO (23:16)
[2017-03-20] VITALS (8 sets, daily range): BP systolic 111–131; BP diastolic 58–75; PULSE 18–92; RESP 17–18
[2017-03-20] MEDS ORDERED: DEXTROSE 5%-0.45% NACL 1,000 ML IV SCH (02:38)
[2017-03-20] MEDS ORDERED: morphine 2 MG INJ IV PRN (03:00)
[2017-03-20] MEDS ORDERED: ACETAMINOPHEN 325 MG TAB PO PRN (03:00)
[2017-03-20] MEDS ORDERED: NACL 0.9% 3 ML SYG IV SCH (03:00)
[2017-03-20] MEDS ORDERED: ALBUTEROL/IPRATROPIUM (NEB) 3 ML AMP HHN PRN (03:00)
[2017-03-20] MEDS ORDERED: ONDANSETRON 4 MG INJ IV PRN (03:00)
[2017-03-20 05:35] LABS: BASOPHIL # 0.1 10^3/ul (0.0-0.1); EOSINOPHILS # 0.3 10^3/ul (0.0-0.5); EOSINOPHILS % 4.3 % (0.0-7.0); HEMATOCRIT 41.3 % (42.0-52.0); HEMOGLOBIN 15.3 g/dl (14.0-18.0); LYMPHOCYTES # 2.4 10^3/ul (0.8-2.9); LYMPHOCYTES % 33.5 % (15.0-51.0); MEAN CORPUSCULAR HEMOGLOBIN 31.3 pg (29.0-33.0); MEAN CORPUSCULAR VOLUME 84.5 fl (82.0-101.0); MEAN PLATELET VOLUME 9.4 fl (7.4-10.4); MONOCYTE # 0.7 10^3/ul (0.3-0.9); MONOCYTES % 9.6 % (0.0-11.0); NEUTROPHIL # 3.7 10^3/ul (1.6-7.5); NEUTROPHILS % 51.2 % (39.0-77.0); PLATELET COUNT 176 10^3/UL (140-415); RED BLOOD COUNT 4.89 10^6/ul (4.70-6.10); RED CELL DISTRIBUTION WIDTH 12.3 % (11.5-14.5); WHITE BLOOD COUNT 7.2 10^3/ul (4.8-10.8)
[2017-03-20 06:00] LABS: ALBUMIN/GLOBULIN RATIO 1.6; BILIRUBIN,INDIRECT 0.4 mg/dl (0-1.1); BILIRUBIN,TOTAL 0.4 mg/dl (0.2-1.3); CALCIUM 9.1 mg/dl (8.4-10.2); CREATININE 0.65 mg/dl (0.61-1.24); MAGNESIUM 1.8 mg/dl (1.7-2.5); TOTAL PROTEIN 6.5 g/dl (6.1-8.1)
--- NOTE | 2017-03-20 07:02 | HP ---
Date/Time of Note Date/Time of Note DATE: 03/20/17 TIME: 06:39 Assessment/Plan VTE Prophylaxis VTE Prophylaxis Intervention: SCD's Lines/Catheters IV Catheter Type (from Nrs): Peripheral IV Assessment/Plan Assessment/Plan ASSESSMENT 32-year-old male with past medical history of dyslipidemia, depression , alcohol abuse, and insulin-dependent diabetes presented with dizziness/ lightheadedness, generalized weakness and confusion after taking 3 times he is normal dose of short-acting insulin (60 units of Humalog) PLAN Lowest blood glucose has been in the 70s. Currently patient is overall feeling well with only complain of lower extremity cramps. He will be admitted to telemetry unit. Hold insulin for now. Check A1c. Start carb control diet. Continue statin and medication for depression. HPI/ROS Admit Date/Time Admit Date/Time Mar 19, 2017 at 21:10 Hx of Present Illness This is a 32-year-old male with past medical history of depression, alcohol abuse, and insulin-dependent diabetes who presented to the ER complaining of confusion and generalized weakness. He said he missed a dose of insulin in the morning and said had a lot to eat for dinner last night. In the afternoon, when he checked his blood glucose, it was around 350. At that time, he said he took 60 units of Humalog, which is 3 times what he normally takes. He then felt lightheaded and confused. When he rechecked his fingersticks, it was in the 200s. He said he took a nap and when he woke up he was still feeling the same and as such he decided to come to the ER for evaluation. Patient was admitted here in May of this year. At that time he claims to have taken 31 pills of Ativan and obtain pills of Ambien to get high. His urine toxicology at that time was negative for benzos. When he presented to the ER, he was tachycardic with a heart rate of 140 otherwise his vitals were stable. Initial blood glucose was 214. Although not clearly documented, I was told he was hypoglycemic in the ER and was placed on D10. Since then fingerstick glucose has been in the 100s and 200s. PMH/Family/Social Social History Smoking Status: Never smoker Exam/Review of Systems Vital Signs Vitals Vital Signs Date Time Temp Pulse Resp B/P Pulse Ox O2 Delivery O2 Flow Rate FiO2 03/20/17 06:15 98.6 18 18 131/75 98 Room Air Intake and Output 03/19/17 03/19/17 03/20/17 15:00 23:00 07:00 Intake Total 600 ml Balance 600 ml Exam Constitutional: alert, oriented, well developed Head: atraumatic, normocephalic Eyes: EOMI, PERRL Respiratory: clear to auscultation, normal air movement Cardiovascular: other (Tachycardic with regular rhythm) Gastrointestinal: non-tender, soft Extremities: normal pulses Labs Result Diagram: 03/19/17 1858 03/20/17 0530 Medications Medications Current Medications Dextrose/Sodium Chloride (D5-1/2ns) 1,000 ml @ 75 mls/hr [id number] IV Last administered on 03/20/17t 03:44; Admin Dose 75 MLS/HR; Start 03/20/17 at 02:38 Ondansetron HCl (Zofran Inj) 4 mg Q6H PRN IV NAUSEA AND/OR VOMITING; Start at 03:00 Acetaminophen (Tylenol Tab) 650 mg Q6H PRN PO PAIN LEVEL 1-3 OR FEVER; Start 03/20/17 at 03:00 Morphine Sulfate (morphine) 2 mg Q4H PRN IV PAIN LEVEL 7-10; Start 03/20/17 at 03:00 Atorvastatin Calcium (Lipitor) 20 mg HS PO ; Start 03/20/17 at 21:00 MICHAEL MOHAMUD MD Mar 20, 2017 06:50
[2017-03-20 08:19] LABS: MEAN CORPUSCULAR HGB CONC 35.3 g/dl (32.0-37.0)
--- NOTE | 2017-03-20 13:58 | PN ---
Date/Time of Note Date/Time of Note DATE: 03/20/17 TIME: 13:56 Assessment/Plan VTE Prophylaxis VTE Prophylaxis Intervention: SCD's Lines/Catheters IV [facility] Per[facility] IV Assessment/Plan Chief Complaint/Hosp Course S: no distress. no f/c/n/v. O: vss PE No pallor/jvd reg [id number]; no m/r/g ctab bs+ nt; nd; no r/r/g no edema A/P 1. Accidental overdose of insulin. Stable resolved. 2. Chronic diabetes A1c of 12. Nonadherence. Reinforced the insulin therapy. 3. Alcoholism 4. Nonadherence 5. Metabolic syndrome 6. Depression 7. Dyslipidemia Problems: Exam/Review of Systems Vital Signs Vitals Vital Signs Date Time Temp Pulse Resp B/P Pulse Ox O2 Delivery O2 Flow Rate FiO2 03/20/17 12:53 97.8 18 18 125/63 96 Room Air Intake and Output 03/19/17 03/19/17 03/20/17 14:59 22:59 06:59 Intake Total 600 ml Balance 600 ml Results Result Diagram: 03/20/17 0530 03/20/17 0530 Results 24 hrs Laboratory Tests Test 03/19/17 18:14 03/19/17 18:53 03/19/17 18:58 03/19/17 19:58 Bedside Glucose 214 100 78 White Blood Count 5.8 Red Blood Count 5.37 Hemoglobin 16.6 Hematocrit 45.1 Mean Corpuscular Volume 84.0 Mean Corpuscular Hemoglobin 30.9 Mean Corpuscular Hemoglobin Concent 36.8 Red Cell Distribution Width 11.9 Platelet Count 207 Mean Platelet Volume 9.5 Neutrophils % 38.5 L Lymphocytes % 44.6 Monocytes % 10.6 Eosinophils % 4.8 Basophils % 1.0 Nucleated Red Blood Cells % 0.0 Neutrophils # 2.2 Lymphocytes # 2.6 Monocytes # 0.6 Eosinophils # 0.3 Basophils # 0.1 Nucleated Red Blood Cells # 0.0 Sodium Level 145 H Potassium Level 3.6 Chloride Level 106 Carbon Dioxide Level 26 Anion Gap 17 H Blood Urea Nitrogen 17 Creatinine 0.72 Glucose Level 88 Calcium Level 10.4 H Test 03/19/17 21:16 03/19/17 21:20 03/19/17 22:11 03/19/17 22:51 Bedside Glucose 85 70 173 Urine Color YELLOW Urine Clarity CLEAR Urine pH 6.0 Urine Specific [place] 1.032 H Urine Ketones 1+ H Urine Nitrite NEGATIVE Urine Bilirubin NEGATIVE Urine Urobilinogen NEGATIVE Urine Leukocyte Esterase NEGATIVE Urine Microscopic RBC 0 Urine Microscopic WBC 1 Urine Hemoglobin NEGATIVE Urine Glucose 3+ H Urine Total Protein 2+ H Troponin I < 0.012 Test 03/20/17 00:27 03/20/17 01:20 03/20/17 02:18 03/20/17 05:30 Bedside Glucose 152 160 209 White Blood Count 7.2 # Red Blood Count 4.89 Hemoglobin 15.3 Hematocrit 41.3 L Mean Corpuscular Volume 84.5 Mean Corpuscular Hemoglobin 31.3 Mean Corpuscular Hemoglobin Concent 35.3 Red Cell Distribution Width 12.3 Platelet Count 176 Mean Platelet Volume 9.4 Neutrophils % 51.2 Lymphocytes % 33.5 Monocytes % 9.6 Eosinophils % 4.3 Basophils % 1.0 Nucleated Red Blood Cells % 0.0 Neutrophils # 3.7 Lymphocytes # 2.4 Monocytes # 0.7 Eosinophils # 0.3 Basophils # 0.1 Nucleated Red Blood Cells # 0.0 Sodium Level 141 Potassium Level 4.0 Chloride Level 105 Carbon Dioxide Level 26 Anion Gap 14 Blood Urea Nitrogen 15 Creatinine 0.65 Glucose Level 263 #H Hemoglobin A1c 12.0 H Calcium Level 9.1 Magnesium Level 1.8 Total Bilirubin 0.4 Direct Bilirubin 0.00 Indirect Bilirubin 0.4 Aspartate Amino Transf (AST/SGOT) 31 Alanine Aminotransferase (ALT/SGPT) 86 H Alkaline Phosphatase 68 Total Protein 6.5 Albumin 4.0 Globulin 2.50 Albumin/Globulin Ratio 1.60 Test 03/20/17 05:43 03/20/17 10:10 Bedside Glucose 303 H 334 H Medications Medications Current Medications Ondansetron HCl (Zofran Inj) 4 mg Q6H PRN IV NAUSEA AND/OR VOMITING; Start at 03:00 Acetaminophen (Tylenol Tab) 650 mg Q6H PRN PO PAIN LEVEL 1-3 OR FEVER; Start 03/20/17 at 03:00 Morphine Sulfate (morphine) 2 mg Q4H PRN IV PAIN LEVEL 7-10; Start 03/20/17 at 03:00 Atorvastatin Calcium (Lipitor) 20 mg HS PO ; Start 03/20/17 at 21:00 CARINE CEJA MD Mar 20, 2017 13:58
[2017-03-20] MEDS ORDERED: GLUCOSE GEL 15 GRAM TUBE PO PRN ×2 (14:30)
[2017-03-20] MEDS ORDERED: GLUCOSE GEL 15 GRAM TUBE BUCCAL PRN (14:30)
[2017-03-20] MEDS ORDERED: DEXTROSE 50% 50 ML SYRINGE IV PRN ×2 (14:30)
[2017-03-20] MEDS ORDERED: GLUCAGON 1 MG INJ IM PRN (14:30)
[2017-03-20] MEDS: INSULIN ASPART [NOVOLOG] 3 ML PEN SC SCH ×2 (14:38→17:21)
[2017-03-20] MEDS: THIAMINE 100 MG TAB PO SCH (15:46)
[2017-03-20] MEDS ORDERED: INSULIN GLARGINE [LANtus] 3 ML PEN SC SCH (20:00)
[2017-03-20] MEDS ORDERED: ATORVASTATIN 20 MG TAB PO SCH (21:00)
[2017-03-21] VITALS: PULSE 74; PULSE 79
[2017-03-21 02:00] VITALS: BP 132/73; PULSE 76; RESP 18
[2017-03-21 04:00] VITALS: PULSE 86; PULSE 88
[2017-03-21 07:41] LABS: BASOPHIL # 0.1 10^3/ul (0.0-0.1); BASOPHILS % 1.2 % (0.0-2.0); EOSINOPHILS # 0.4 10^3/ul (0.0-0.5); EOSINOPHILS % 6.1 % (0.0-7.0); HEMATOCRIT 45.6 % (42.0-52.0); HEMOGLOBIN 16.6 g/dl (14.0-18.0); LYMPHOCYTES # 2.2 10^3/ul (0.8-2.9); LYMPHOCYTES % 33.7 % (15.0-51.0); MEAN CORPUSCULAR HEMOGLOBIN 31.2 pg (29.0-33.0); MEAN CORPUSCULAR HGB CONC 36.4 g/dl (32.0-37.0); MEAN CORPUSCULAR VOLUME 85.7 fl (82.0-101.0); MEAN PLATELET VOLUME 9.5 fl (7.4-10.4); MONOCYTE # 0.5 10^3/ul (0.3-0.9); MONOCYTES % 6.9 % (0.0-11.0); NEUTROPHIL # 3.4 10^3/ul (1.6-7.5); NEUTROPHILS % 51.8 % (39.0-77.0); PLATELET COUNT 181 10^3/UL (140-415); RED BLOOD COUNT 5.32 10^6/ul (4.70-6.10); RED CELL DISTRIBUTION WIDTH 12.2 % (11.5-14.5); WHITE BLOOD COUNT 6.6 10^3/ul (4.8-10.8)
[2017-03-21 08:00] VITALS: BP 124/74; PULSE 88; PULSE 89; RESP 20
[2017-03-21 08:12] LABS: CALCIUM 9.5 mg/dl (8.4-10.2); CREATININE 0.67 mg/dl (0.61-1.24); MAGNESIUM 1.8 mg/dl (1.7-2.5); PHOSPHORUS 4.3 mg/dl (2.5-4.9); POTASSIUM 4.3 mmol/L (3.5-5.1)
[2017-03-21] MEDS: INSULIN ASPART [NOVOLOG] 3 ML PEN SC SCH ×3 (08:45→17:44)
[2017-03-21] MEDS: THIAMINE 100 MG TAB PO SCH (10:22)
[2017-03-21 12:00] VITALS: PULSE 88
[2017-03-21 16:00] VITALS: PULSE 88
--- NOTE | 2017-03-21 17:32 | PDOCDIS ---
Discharge Instructions DIAGNOSIS Discharge Diagnosis Hypoglycemia. Diabetes. Nonadherence. Alcoholism? CONDITION Patient Condition: Good HOME CARE INSTRUCTIONS: Special Diet: 1800 ADA. If required 5 small meals spaced out during the day. Your diet recommendation is: If skipping meals take half of normal dose of Humalog. ACTIVITY: Activity Restrictions: Slowly Increase Activity Do not Drive FOLLOW UP/APPOINTMENTS Follow-up Plan Appointment primary 1 week Endocrinology referral 1-2 weeks Diabetic education referral CARINE CEJA MD Mar 21, 2017 17:32
[2017-03-21] MEDS ORDERED: THIA100T56 PO (17:35)
[2017-03-21] MEDS ORDERED: DEXT37.54 PO (17:35)
[2017-03-21] MEDS ORDERED: LANT3I SC (17:35)
--- NOTE | 2017-03-21 17:37 | DS ---
Date/Time of Note Date/Time of Note DATE: 03/21/17 TIME: 17:35 Discharge Summary Admission/Discharge Info Admit Date/Time Mar 19, 2017 at 21:10 Discharge Date/Time Discharge Diagnosis Hypoglycemia. Diabetes. Nonadherence. Alcoholism? Patient Condition: Stable Consults None Procedures Laboratory assessment. Hx of Present Illness 32-year-old gentleman admitted with hypoglycemic symptoms. Not adherent to medicines. Skip meals. Alcoholism? Hospital Course Evaluated/managed for hypoglycemia. Initially needed D10 drip in the ER. Presently sugars are in the 200s, he is tolerating diet without any symptoms. Stable and fit for discharge. At this time going home on Humalog 10 with meals and Lantus 30 nightly. He was counseled regarding skipping meals. I recommended 5 small meals spaced out through the day. Additionally I counseled him regarding alcohol use. He is stable and fit for discharge. S: no distress. no f/c/n/v. O: vss PE No pallor/jvd reg [id number]; no m/r/g ctab bs+ nt; nd; no r/r/g no edema A/P 1. Accidental overdose of insulin. Stable resolved. 2. Chronic diabetes A1c of 12. Nonadherence. Reinforced the insulin therapy. 3. Alcoholism 4. Nonadherence 5. Metabolic syndrome 6. Depression 7. Dyslipidemia Home Meds Active Scripts Thiamine* (Vitamin B-1*) 100 Mg Tablet, 100 MG PO DAILY for 30 Days, #30 TAB 2 Refills otc Prov:CARINE CEJA MD 03/21/17 Insulin Glargine* (Lantus*) 100 Unit/Ml Soln, 30 UNIT SC DAILY@20 for 7 Days, # 14 Prov:CARINE CEJA MD 03/21/17 Dextrose (Glutose 15) 37.5 Gm Gel..gm., 15 GM PO Q15M Y for DECREASED GLUCOSE for 7 Days, #10 OTC oral instant glucose. take if blood sugar is less than 70, or skipping meals. Prov:CARINE CEJA MD 03/21/17 Atorvastatin Calcium (Atorvastatin Calcium) 20 Mg Tablet, 20 MG PO HS for 10 Days, TAB Prov:STARR TELLO MD 06/27/16 Insulin Aspart* (Novolog Insulin Pen*) 100 Unit/Ml Soln, 0 UNIT SC WITH MEALS BEDTIME for 30 Days Prov:STARR TELLO MD 06/27/16 Reported Medications Quetiapine Fumarate* (Quetiapine Fumarate*) 200 Mg Tablet, 200 MG PO HS, TAB 03/19/17 Discontinued Reported Medications Insulin Lispro (Humalog) 100 Unit/1 Ml Cartridge, 20 UNIT SQ BEFORE MEALS 04/06/16 Nph, Human Insulin Isophane (Humulin N) 100 Units/Ml Vial, 20 UNIT SC HS, VIAL 01/06/15 Insulin Glargine* (Lantus*) 100 Unit/Ml Soln, 40 UNIT SC HS, EA 06/22/14 Discontinued Scripts Naproxen* (Naprosyn*) 500 Mg Tablet, 500 MG PO BID Y for PAIN AND/OR INFLAMMATION, #30 TAB Prov:TUAN BOYD PA-C 11/01/16 Hydroxyzine Hcl* (Hydroxyzine Hcl*) 10 Mg Tablet, 10 MG PO QID, #12 TAB Prov:MESSI ORR DO 07/12/16 Metformin Hcl (Glucophage) 500 Mg Tablet, 1000 MG PO BID WITH MEALS for 10 Days , TAB Prov:STARR TELLO MD 06/27/16 Repaglinide* (Prandin*) 2 Mg Tablet, 2 MG PO AC MEALS for 10 Days, TAB Prov:STARR TELLO MD 06/27/16 Sertraline Hcl* (Sertraline Hcl*) 100 Mg Tablet, 100 MG PO DAILY for 10 Days, TAB Prov:STARR TELLO MD 06/27/16 Follow-up Plan Appointment primary 1 week Endocrinology referral 1-2 weeks Diabetic education referral Primary Care Provider Not On Staff Doctor Time spent on discharge: > 30 minutes Pending Labs Laboratory Tests Test 03/20/17 21:49 03/21/17 07:19 03/21/17 07:53 03/21/17 12:14 Bedside Glucose 235mg/dL (70-220) 296mg/dL (70-220) 245mg/dL (70-220) White Blood Count 6.610^3/ul (4.8-10.8) Red Blood Count 5.3210^6/ul (4.70-6.10) Hemoglobin 16.6g/dl (14.0-18.0) Hematocrit 45.6% (42.0-52.0) Mean Corpuscular Volume 85.7fl (82.0-101.0) Mean Corpuscular Hemoglobin 31.2pg (29.0-33.0) Mean Corpuscular Hemoglobin Concent 36.4g/dl (32.0-37.0) Red Cell Distribution Width 12.2% (11.5-14.5) Platelet Count 42902^3/UL (140-415) Mean Platelet Volume 9.5fl (7.4-10.4) Neutrophils % 51.8% (39.0-77.0) Lymphocytes % 33.7% (15.0-51.0) Monocytes % 6.9% (0.0-11.0) Eosinophils % 6.1% (0.0-7.0) Basophils % 1.2% (0.0-2.0) Nucleated Red Blood Cells % 0.0/100WBC (0.0-0.0) Neutrophils # 3.410^3/ul (1.6-7.5) Lymphocytes # 2.210^3/ul (0.8-2.9) Monocytes # 0.510^3/ul (0.3-0.9) Eosinophils # 0.410^3/ul (0.0-0.5) Basophils # 0.110^3/ul (0.0-0.1) Nucleated Red Blood Cells # 0.010^3/ul (0.0-0.0) Sodium Level 142mmol/L (135-144) Potassium Level 4.3mmol/L (3.5-5.1) Chloride Level 105mmol/L (97-110) Carbon Dioxide Level 28mmol/L (21-31) Anion Gap 13 (8-16) Blood Urea Nitrogen 14mg/dl (7-20) Creatinine 0.67mg/dl (0.61-1.24) Glucose Level 292mg/dl (70-220) Calcium Level 9.5mg/dl (8.4-10.2) Phosphorus Level 4.3mg/dl (2.5-4.9) Magnesium Level 1.8mg/dl (1.7-2.5) Thyroid Stimulating Hormone (TSH) 1.690MIU/L (0.465-4.680) Test 11/22/17 17:16 Bedside Glucose 247mg/dL (70-220) CARINE CEJA MD Mar 21, 2017 17:37
[2017-03-21] MEDS ORDERED: INSULIN GLARGINE [LANtus] 3 ML PEN SC SCH (20:00)
== END 2017-03-21 18:13 | disposition home or self-care (01) | DRG 918 ==
LOC: E/R 17:48 → MS3 21:10
PROVIDERS: ADMIT Hospitalist; ATTEND Hospitalist
DX: T38.3X1A Poisoning by insulin and oral hypoglycemic [antidiabetic] drugs, accidental (unintentional), initial encounter (principal); F32.9 Major depressive disorder, single episode, unspecified; E11.9 Type 2 diabetes mellitus without complications; R00.0 Tachycardia, unspecified; R25.2 Cramp and spasm; F10.20 Alcohol dependence, uncomplicated; Z91.14 Patient's other noncompliance with medication regimen; E78.5 Hyperlipidemia, unspecified
CPT/HCPCS: 36415; 80048; 80053; 81001; 82962; 83036; 83735; 84100; 84443; 84484; 85025; 93005; 96361; 96374; 96375; J1815; J2405; J7042

== ENCOUNTER 2017-06-16 13:31 | Inpatient (IN) | END 2017-06-19 14:34 | disposition home or self-care (01) | DRG 637 ==

== ENCOUNTER 2017-06-28 20:10 | Inpatient (IN) | END 2017-06-30 15:40 | disposition home or self-care (01) | DRG 638 ==

== ENCOUNTER 2017-07-10 15:02 | Emergency (ER) | END 2017-07-10 19:55 | disposition home or self-care (01) ==

== ENCOUNTER 2017-08-12 13:04 | Emergency (ER) | END 2017-08-12 13:21 | disposition home or self-care (01) ==

== ENCOUNTER 2017-08-25 02:47 | Inpatient (IN) | END 2017-08-25 22:30 | disposition short-term general hospital (02) | DRG 637 ==

== ENCOUNTER 2017-09-27 11:16 | Emergency (ER) | END 2017-09-27 20:14 | disposition home or self-care (01) ==

== ENCOUNTER 2018-01-09 23:22 | Emergency (ER) | END 2018-01-10 07:48 ==

== ENCOUNTER 2018-03-09 03:39 | Emergency (ER) | END 2018-03-09 05:04 | disposition home or self-care (01) ==

== ENCOUNTER 2018-09-08 08:25 | Emergency (ER) | payer OTHER ==
[~2018-09-08] VITALS: Ht 175.3 cm; Wt 101.4 kg
[~2018-09-08 08:25] MED LIST changes: -ATOR20TA65 PO; -HYDR-3010 PO; -INSU100C SQ; +INSU100I12 SQ; +LORA1TAB PO; -METF500T PO; -NAPR-260 PO; -NOVO3I SC; -NPH,100V SC; +PANT40TA4 PO; +QUET100T32 PO; -REPA2TAB6 PO; -SERT-165 PO; +TRAM50TA PO
[2018-09-08 08:27] VITALS: Ht 175.3 cm; Wt 101.4 kg
[2018-09-08] MEDS ORDERED: FLUC150T PO (09:24)
[2018-09-08] MEDS ORDERED: CLOT30CR24 TOP (09:24)
[2018-09-08 09:45] VITALS: BP 149/84; PULSE 92; RESP 18
--- NOTE | 2018-09-08 16:43 | ERD ---
ER Documentation Chief Complaint Chief Complaint painful infection in genital area x2 wks HPI Is a 33-year-old male patient presents emergency room with complaint of redness, itching, and burning to head of his penis. Patient states he is diabetic and he has flares of fungal infections couple times a year. States he is compliant with all of his antidiabetic medications. He checks his blood sugar regularly and his blood sugars average about 300. Denies fever, denies any penile discharge, denies sexual activity. ROS All systems reviewed and are negative except as per history of present illness. Medications Home Meds Active Scripts Clotrimazole* (Clotrimazole* AF) 1% - 30 Gm Cream.gm., 1 APPLIC TOP BID for BALANITIS for 14 Days, #1 TUB Prov:WANDY VARGAS [employer] 09/08/18 Fluconazole* (Diflucan*) 150 Mg Tablet, 150 MG PO ONCE, #1 TAB Prov:WANDY VARGAS [employer] 09/08/18 Reported Medications Lorazepam* (Lorazepam*) 1 Mg Tablet, 2 MG PO BID PRN for ANXIETY, #30 TAB 05/29/18 Quetiapine Fumarate* (Quetiapine Fumarate*) 100 Mg Tablet, 100 MG PO HS, TAB 05/29/18 Tramadol Hcl* (Ultram*) 50 Mg Tablet, 100 MG PO Q6H PRN for PAIN, TAB 05/29/18 Pantoprazole* (Pantoprazole*) 40 Mg Tablet.dr, 40 MG PO AC BREAKFAST, TAB 01/10/18 Insulin Glargine* (Lantus*) 100 Unit/Ml Soln, 55 UNIT SC QHS, #1 VIAL 01/10/18 Insulin Lispro (Humalog Kwikpen U-100) 100 Unit/1 Ml Insuln.pen, 20 UNIT SQ TID, EA 06/28/17 Allergies Allergies: Coded Allergies: No Known Drug Allergies (Unverified Allergy, Unknown, 05/29/18) PMhx/Soc History of Surgery: Yes (Appendectomy) Anesthesia Reaction: No Hx Neurological Disorder: Yes (depression) Hx Respiratory Disorders: No Hx Cardiac Disorders: No Hx Psychiatric Problems: Yes (Depression) Hx Miscellaneous Medical Probl: Yes (Etoh abuse) Hx Alcohol Use: Yes Hx Substance Use: Yes Hx Tobacco Use: No Smoking Status: Never smoker FmHx Family History: diabetes Physical Exam Vitals Vital Signs Date Temp Pulse Resp B/P (MAP) Pulse Ox O2 O2 Flow FiO2 Time Delivery Rate 09/08/18 98.2 92 18 149/84 98 Room Air 09:45 (105) 09/08/18 97.8 107 18 157/84 98 08:27 (108) Physical Exam Const: No acute distress Head: Atraumatic Eyes: Normal Conjunctiva ENT: Normal External Ears, Nose without discharge, pharynx pink, moist, no lesions, no exudate Neck: Full range of motion. No meningismus. No lymph Resp: Clear to auscultation bilaterally Cardio: Regular rate and rhythm, no murmurs Abd: Soft, non tender, non distended. Normal bowel sounds Skin: No petechiae or rashes Genital: Pt not circumcised, foreskin retracts easily, glans with mild erythema and small satellite red macular lesions, no penile discharge Neur: Awake and alert Psych: Normal Mood and Affect Procedures/MDM Is a 33-year-old male patient presents emergency room with history of balanitis. Patient is having recurring infection that is typical for his fungal infections he gets a few times a year due to high blood sugar. MDM: This patients soft tissue infection appears to be appropriate for outpatient treatment with close follow-up for reevaluation by his primary career specialist within 1-2 weeks. A serious, rapidly progressive infectious process is unlikely based upon the patients presentation and appearance of the infection. Antifungal treatment has been initiated and response to treatment will be based on reassessment at close follow-up. The patient has been instructed on signs and symptoms of acute progression of infection and to return immediately if any of these occur. Patient has been instructed on diabetic diet, reducing simple carbohydrates, increasing hydration, compliance with medications, follow-up with his diabetes practitioner. DISPOSITION: The patient has been discharge home to follow-up with community physician. Departure Diagnosis: Primary Impression: Diabetes Additional Impressions: Balanitis Diabetes mellitus type 2 in obese Condition: Stable Patient Instructions: Balanitis Referrals: COMMUNITY CLINICS YOU HAVE RECEIVED A MEDICAL SCREENING EXAM AND THE RESULTS INDICATE THAT YOU DO NOT HAVE A CONDITION THAT REQUIRES URGENT TREATMENT IN THE EMERGENCY DEPARTMENT. FURTHER EVALUATION AND TREATMENT OF YOUR CONDITION CAN WAIT UNTIL YOU ARE SEEN IN YOUR DOCTORS OFFICE WITHIN THE NEXT 1-2 DAYS. IT IS YOUR RESPONSIBILITY TO MA KE AN APPOINTMENT FOR FOLOW-UP CARE. IF YOU HAVE A PRIMARY DOCTOR --you should call your primary doctor and schedule an appointment IF YOU DO NOT HAVE A PRIMARY DOCTOR YOU CAN CALL OUR PHYSICIAN REFERRAL HOTLINE AT IF YOU CAN NOT AFFORD TO SEE A PHYSICIAN YOU CAN CHOSE FROM THE FOLLOWING [facility] [address] [facility] [address] [facility] [address] [facility] [address] [facility] [address] [facility]. [facility] [address] Additional Instructions: Thank you very much for allowing us to participate in your care. Your health and safety is our top priority at [facility]. Call your primary care doctor TOMORROW for an appointment during the next 2-4 days and bring all the information and medications prescribed. Have prescriptions filled and follow precisely the directions on the label. If the symptoms get worse and your provider is unavailable, return to the Emergency Department immediately. WANDY VARGAS NP September 08, 2018 16:43
== END 2018-09-08 09:44 | disposition home or self-care (01) ==
LOC: FTE 08:25
DX: E11.9 Type 2 diabetes mellitus without complications (principal); N48.1 Balanitis; Z79.4 Long term (current) use of insulin
CPT/HCPCS: 99283

== ENCOUNTER 2018-10-04 09:16 | Emergency (ER) | payer OTHER ==
[~2018-10-04] VITALS: Wt 90.0 kg
[~2018-10-04 09:16] MED LIST changes: +CLOT30CR24 TOP; +FLUC150T PO
[2018-10-04] MEDS ORDERED: DIPHENHYDRAMINE 50 MG INJ IV ONE (10:00)
[2018-10-04] MEDS ORDERED: PRAZ5CAP2 ORAL (10:52)
[2018-10-04] MEDS ORDERED: GABA-528 ORAL (10:52)
[2018-10-04] MEDS ORDERED: HALO10TA ORAL (10:52)
[2018-10-04] MEDS ORDERED: DIVA500T15 ORAL (10:52)
--- NOTE | 2018-10-04 13:06 | PSY ---
Date/Time of Note Date/Time of Note DATE: 10/04/18 TIME: 12:59 Psychiatric Subjective Eval Consent Pt consented to telemedicine: Yes Subjective Evaluation Patient location: emergency Chief Complaint: STARTED NEW PSYCH MED FOR 2 WKS. NOW GEN BODY STIFFNESS AND VELEZ History of present illness 33 yo male with hx schizophrenia and alcohol use presents to ED c/o difficulties walking since he was started on a new medication. Pt doesn't know what was the most recent medication change. Per EHR he is on Haldol 10 mg prn anxiety. He is also on Depakote ER 500 mg poqhs, Gabapentin 800 mg PO TID and prazosin 5 mg poqhs, Seroquel 100 mg poqhs. Pt says he is not able to walk and he urinates in bed at night. However, he says he does go to the toilet for a bowel movement. Pt reprots AH telling him to kill himself and says he will voerdose or jump in front of the bus. Then the pt is asked how will he jump if he claims he can't wlak he says he did it before.Denies HI, denies VH. Says he i shopeless and depressed. Past psychiatric history multiple inpt Hospitalization: Suicidal Attempt(s) Medical history Problems Medical Problems: (1) Acute hyperglycemia Status: Acute (2) Acute hypokalemia Status: Acute (3) Acute metabolic encephalopathy due to hypoglycemia Status: Acute (4) Alcohol abuse Status: Acute (5) Alcohol withdrawal Status: Acute (6) Alcohol withdrawal Status: Acute (7) Alcohol withdrawal Status: Acute (8) Alcoholic intoxication Status: Resolved (9) Alcoholism /alcohol abuse Status: Chronic (10) Anxiety Status: Acute (11) Anxiety Status: Acute (12) Anxiety Status: Acute (13) Balanitis Status: Acute (14) Balanitis Status: Acute (15) Balanitis Status: Acute (16) Dehydration Status: Acute (17) Depression Status: Acute (18) Diabetes Status: Acute (19) Diabetes Status: Acute (20) Diabetes mellitus out of control Status: Acute (21) Diabetes mellitus type 1 Status: Acute (22) Diabetes mellitus type 2 in obese Status: Chronic (23) DKA (diabetic ketoacidoses) Status: Acute (24) Hyperglycemia Status: Acute (25) Hyperglycemia Status: Acute (26) Hyperglycemia Status: Acute (27) Hyperglycemia Status: Acute (28) Hyperglycemia Status: Acute (29) Hyperlipidemia Status: Chronic (30) Hypoglycemia Status: Acute (31) Injury of hand Status: Acute (32) Insulin overdose Status: Acute (33) Insulin overdose Status: Acute (34) Lactic acidosis Status: Acute (35) Leukopenia Status: Acute (36) Major depressive disorder with current active episode Status: Chronic (37) Nausea and vomiting Status: Acute (38) Overdose Status: Resolved (39) Overweight Status: Chronic (40) Palpitations Status: Acute (41) Pancreatitis Status: Acute (42) Psychosis Status: Acute (43) Scabies Status: Acute (44) Septic shock Status: Acute (45) Suicidal ideation Status: Acute (46) Suicidal ideation Status: Acute (47) Suicidal ideation Status: Acute (48) Suicidal ideation Status: Acute (49) Tachycardia Status: Acute (50) Tachycardia Status: Acute (51) Tricyclic antidepressant poisoning Status: Acute (52) Uncontrolled diabetes mellitus Status: Acute (53) Vomiting Status: Acute Allergies: Coded Allergies: No Known Drug Allergies (Unverified Allergy, Unknown, 10/04/18) Substance Abuse Substance abuse history: Yes Prior substance abuse treatmen: Yes Social History Marital status: single Level of education: some college DPA/Conservatorship: No Occupation/Jail: on SSI Psychiatric Objective Eval Review of Systems: Review of Systems: Not Applicable Mental Status Examination: Appearance: Disheveled Eye Contact: Good Psychomotor Activity: Normal Behavior: Cooperative Speech: Monotone AFFECT: Depressed Mood: Depressed Though Process: Linear Thought Content: Hallucinations Suicidal: Yes Homicidal: No On 72 hour hold: No Orientation: x4 Cognition: Alert Insight: Impared Judgement: Impared Laboratory Results Laboratory Tests Test 10/04/18 09:57 White Blood Count 5.2 10^3/ul Red Blood Count 5.80 10^6/ul Hemoglobin 16.7 g/dl Hematocrit 48.4 % Mean Corpuscular Volume 83.4 fl Mean Corpuscular Hemoglobin 28.8 pg Mean Corpuscular Hemoglobin Concent 34.5 g/dl Red Cell Distribution Width 13.1 % Platelet Count 210 10^3/UL Mean Platelet Volume 9.3 fl Immature Granulocytes % 0.200 % Neutrophils % 68.9 % Lymphocytes % 22.9 % Monocytes % 6.6 % Eosinophils % 0.8 % Basophils % 0.6 % Nucleated Red Blood Cells % 0.0 /100WBC Immature Granulocytes # 0.010 10^3/ul Neutrophils # 3.6 10^3/ul Lymphocytes # 1.2 10^3/ul Monocytes # 0.3 10^3/ul Eosinophils # 0.0 10^3/ul Basophils # 0.0 10^3/ul Nucleated Red Blood Cells # 0.0 10^3/ul Sodium Level 147 mmol/L Potassium Level 3.9 mmol/L Chloride Level 107 mmol/L Carbon Dioxide Level 28 mmol/L Anion Gap 12 Blood Urea Nitrogen 7 mg/dl Creatinine 0.63 mg/dl Est Glomerular Filtrat Rate mL/min > 60 mL/min Glucose Level 125 mg/dl Calcium Level 9.9 mg/dl Total Bilirubin 0.8 mg/dl Direct Bilirubin 0.00 mg/dl Indirect Bilirubin 0.8 mg/dl Aspartate Amino Transf (AST/SGOT) 56 IU/L Alanine Aminotransferase (ALT/SGPT) 41 IU/L Alkaline Phosphatase 54 IU/L Total Protein 8.0 g/dl Albumin 5.0 g/dl Globulin 3.00 g/dl Albumin/Globulin Ratio 1.66 Assessment and Plan Assessment/Diagnosis Diagnosis SCHIZOAFFECTIVE DISORDER. ALCOHOL USE DISORDER. Recommendation/Plan Medication Management CHECK VPA LEVEL. CHECK NH3 . CONSIDER D/C HALDOL. INCREASE SEROQUEL TO 200 MG PO QHS AND 100 MG PO BID. CONSIDER REDUCING PRAZOSIN TO 2 MG POQHS. CONTINUE DEPAKOTE ER 500 MG POQHS, GABAPENTIN 800 MG PO TID Multiple antipsychotics: Yes Discharge Disposition: Psychiatric inpatient Legal Status: Place involuntary hold NANCY NICHOLSON MD Oct 04, 2018 13:06
--- NOTE | 2018-10-04 13:55 | ERD ---
ER Documentation Chief Complaint Chief Complaint STARTED NEW PSYCH MED FOR 2 WKS. NOW GEN BODY STIFFNESS AND VELEZ HPI 33-year-old male presents the emergency department initially complaining of generalized body stiffness and weakness. Patient states that he has been on multiple psychiatric medications including a new antipsychotic that has been taking for approximately 2 weeks. He states that since starting the new antipsychotic he is been feeling generalized body stiffness and weakness to the point where he feels difficulty walking. He reported no focal weakness or numbness. He reported no fevers or chills. He reported no nausea or vomiting. Psychiatrically, he initially had no complaints of feeling acutely suicidal or homicidal. However, later in the emergency department course, he then stated that he felt suicidal and wanted to jump in front of traffic. ROS All systems reviewed and are negative except as per history of present illness. Medications Home Meds Reported Medications Divalproex Sodium* (Divalproex ER*) 500 Mg Tab.er.24h, 1 TAB ORAL QHS 10/04/18 Gabapentin* (Gabapentin*) 800 Mg Tablet, 1 TAB ORAL TID 10/04/18 Prazosin Hcl* (Prazosin Hcl*) 5 Mg Capsule, 1 TAB ORAL QHS 10/04/18 Haloperidol* (Haloperidol*) 10 Mg Tablet, 5 MG ORAL DAILY PRN for ANXIETY 10/04/18 Lorazepam* (Lorazepam*) 1 Mg Tablet, 2 MG PO BID PRN for ANXIETY, #30 TAB 05/29/18 Quetiapine Fumarate* (Quetiapine Fumarate*) 100 Mg Tablet, 100 MG PO HS, TAB 05/29/18 Tramadol Hcl* (Ultram*) 50 Mg Tablet, 100 MG PO Q6H PRN for PAIN, TAB 05/29/18 Pantoprazole* (Pantoprazole*) 40 Mg Tablet.dr, 40 MG PO AC BREAKFAST, TAB 01/10/18 Insulin Glargine* (Lantus*) 100 Unit/Ml Soln, 55 UNIT SC QHS, #1 VIAL 01/10/18 Insulin Lispro (Humalog Kwikpen U-100) 100 Unit/1 Ml Insuln.pen, 20 UNIT SQ TID, EA 06/28/17 Discontinued Scripts Clotrimazole* (Clotrimazole* AF) 1% - 30 Gm Cream.gm., 1 APPLIC TOP BID for BALANITIS for 14 Days, #1 TUB Prov:WANDY VARGAS [employer] 09/08/18 Fluconazole* (Diflucan*) 150 Mg Tablet, 150 MG PO ONCE, #1 TAB Prov:WANDY VARGAS [employer] 09/08/18 Allergies Allergies: Coded Allergies: No Known Drug Allergies (Unverified Allergy, Unknown, 10/04/18) PMhx/Soc History of Surgery: Yes (Appendectomy) Anesthesia Reaction: No Hx Neurological Disorder: Yes (depression) Hx Respiratory Disorders: No Hx Cardiac Disorders: No Hx Psychiatric Problems: Yes (Depression, BIPOLAR) Hx Miscellaneous Medical Probl: Yes (Etoh abuse) Hx Alcohol Use: No Hx Substance Use: No Hx Tobacco Use: No Smoking Status: Never smoker FmHx Noncontributory for chief complaint Physical Exam Vitals Vital Signs Date Temp Pulse Resp B/P (MAP) Pulse Ox O2 O2 Flow FiO2 Time Delivery Rate 10/04/18 98.3 96 18 144/83 99 09:20 (103) Physical Exam GENERAL: The patient is well developed and appropriate for usual state of health in no apparent distress HEENT: Pupils equal, round, and reactive to light. EOMI. There is no scleral icterus. NECK: C-spine is soft and supple, there is no meningismus. There is no cervical lymphadenopathy. LUNGS: Clear to auscultation bilaterally. There are no rales, wheezes or rhonchi. HEART: Regular rate and rhythm, no murmurs, clicks, rubs or gallops. ABDOMEN: Soft, non-tender, non-distended. There are bowel sounds in all four quadrants. No rebound or guarding. EXTREMITIES: There is no peripheral cyanosis or edema. No focal swelling or erythema. NEURO: The patient moves all four extremities with 5/5 strength. Cranial nerves II - XII are intact. Normal gait. Alert and oriented SKIN: There is no apparent rash or petechiae. HEME/LYMPHATIC: There is no evidence of excessive bruising or lymphedema. PSYCHIATRIC: Awake, alert, oriented. Slow speech. Some insight and judgment. Patient has a depressed affect and demeanor. Expressing suicidal ideation and command hallucinations. Result Diagram: 10/04/1857 10/04/1857 Results 24 hrs Laboratory Tests Test 10/04/18 09:57 White Blood Count 5.2 10^3/ul Red Blood Count 5.80 10^6/ul Hemoglobin 16.7 g/dl Hematocrit 48.4 % Mean Corpuscular Volume 83.4 fl Mean Corpuscular Hemoglobin 28.8 pg Mean Corpuscular Hemoglobin Concent 34.5 g/dl Red Cell Distribution Width 13.1 % Platelet Count 210 10^3/UL Mean Platelet Volume 9.3 fl Immature Granulocytes % 0.200 % Neutrophils % 68.9 % Lymphocytes % 22.9 % Monocytes % 6.6 % Eosinophils % 0.8 % Basophils % 0.6 % Nucleated Red Blood Cells % 0.0 /100WBC Immature Granulocytes # 0.010 10^3/ul Neutrophils # 3.6 10^3/ul Lymphocytes # 1.2 10^3/ul Monocytes # 0.3 10^3/ul Eosinophils # 0.0 10^3/ul Basophils # 0.0 10^3/ul Nucleated Red Blood Cells # 0.0 10^3/ul Sodium Level 147 mmol/L Potassium Level 3.9 mmol/L Chloride Level 107 mmol/L Carbon Dioxide Level 28 mmol/L Anion Gap 12 Blood Urea Nitrogen 7 mg/dl Creatinine 0.63 mg/dl Est Glomerular Filtrat Rate mL/min > 60 mL/min Glucose Level 125 mg/dl Calcium Level 9.9 mg/dl Total Bilirubin 0.8 mg/dl Direct Bilirubin 0.00 mg/dl Indirect Bilirubin 0.8 mg/dl Aspartate Amino Transf (AST/SGOT) 56 IU/L Alanine Aminotransferase (ALT/SGPT) 41 IU/L Alkaline Phosphatase 54 IU/L Total Protein 8.0 g/dl Albumin 5.0 g/dl Globulin 3.00 g/dl Albumin/Globulin Ratio 1.66 Current Medications Medications Dose Sig/Amanda Start Time Status Last (Trade) Ordered Route PRN Stop Time Admin Dose Reason Admin 25 mg ONCE ONCE 10/04/18 DC 10/04/18 Diphenhydrami IV 10:00 10/04/18 09:59 ne HCl 10:01 (Benadryl) Procedures/MDM Patient was taken to a room, seen and evaluated. Comfort measures were initiated. Diagnostic tests were ordered and reviewed. 3 LEAD RHYTHM STRIP: Normal sinus rhythm without ectopy CONSULTATION: Tele-psych consultation was appreciated. A 5150 hold was then recommended as he complained of suicidal ideation REEVALUATION: Diagnostic tests were appreciated. Patient remained medically stable MEDICAL DECISION MAKING: Patient presents with symptomatology consistent with the decompensation of previously diagnosed psychiatric disease. Based on history, physical exam and appropriate lab tests, I appreciate no evidence of significant life threatening injury or illness that precludes psychiatric hospitalization. Patient is thus "medically clear" for psychiatric admission. In regards to the psychiatric complaints, this patient has clear evidence of h igh risk psychiatric symptoms with significant risk for decompensation, thus requiring hospitalization for stabilization. Departure Diagnosis: Primary Impression: Psychosis Additional Impression: Suicidal ideation Condition: MARBELLA Russell Oct 04, 2018 13:55
--- NOTE | 2018-10-04 18:10 | EN ---
Date/Time of Note Date/Time of Note DATE: 10/04/18 TIME: 18:10 ER Progress Note Please note that this patient is voluntarily going to [facility] to be placed on hold. They have requested for urinalysis to be sent. This was ordered by myself. This will also be reviewed by myself. At this time the patient was medically cleared by myself. KRYSTAL SOOD MD Oct 04, 2018 18:10
[2018-10-05 08:01] VITALS: BP 145/94; PULSE 84; RESP 16
== END 2018-10-05 08:07 | disposition home or self-care (01) ==
LOC: E/R 09:16
DX: F29 Unspecified psychosis not due to a substance or known physiological condition (principal); Z79.4 Long term (current) use of insulin
CPT/HCPCS: 80053; 80307; 81003; 82962; 85025; J1200; 36415; 96374

== ENCOUNTER 2019-01-12 13:47 | Emergency (ER) | payer OTHER ==
[~2019-01-12] VITALS: Wt 84.5 kg
[~2019-01-12 13:47] MED LIST changes: +CEPH-443 PO; -CLOT30CR24 TOP; +DIVA500T15 ORAL; -FLUC150T PO; +GABA-528 ORAL; +HALO10TA ORAL; +PRAZ5CAP2 ORAL; +ZOLP10TA5 PO
[2019-01-12] MEDS ORDERED: BACITRACIN 0.5%/ZINC 28.35 GM OINT TOP ONE (14:30)
[2019-01-12] MEDS ORDERED: LORAZEPAM 1 MG TAB PO ONE (15:30)
[2019-01-12] MEDS ORDERED: SOD CHLORIDE 0.9% 1,000 ML IV ONE (17:00)
[2019-01-12 18:13] VITALS: BP 134/88; PULSE 114; RESP 20
== END 2019-01-12 18:14 | disposition home or self-care (01) ==
LOC: E/R 13:47
DX: S90.812A Abrasion, left foot, initial encounter (principal); E11.9 Type 2 diabetes mellitus without complications; R00.0 Tachycardia, unspecified; L03.115 Cellulitis of right lower limb; L03.116 Cellulitis of left lower limb; S90.811A Abrasion, right foot, initial encounter; X58.XXXA Exposure to other specified factors, initial encounter; Y92.9 Unspecified place or not applicable; Z79.4 Long term (current) use of insulin
CPT/HCPCS: 93005; J7030; Z7502; Z7610

== ENCOUNTER 2019-02-24 15:34 | Emergency (ER) | payer OTHER ==
[~2019-02-24] VITALS: Ht 188 cm; Wt 86.4 kg
[2019-02-24 15:40] VITALS: Ht 188 cm; Wt 86.4 kg
[2019-02-24] MEDS ORDERED: LORAZEPAM 2 MG INJ IV ONE (16:30)
[2019-02-24] MEDS ORDERED: INSULIN ASPART [NOVOLOG] 3 ML PEN SC ONE (17:00)
[2019-02-24] MEDS ORDERED: ACCU-CHEK XX ONE (17:00)
[2019-02-25] MEDS ORDERED: GABAPENTIN 300 MG CAP PO SCH
[2019-02-25] MEDS ORDERED: GLUCOSE GEL 15 GRAM TUBE BUCCAL PRN (04:30)
[2019-02-25] MEDS ORDERED: DEXTROSE 50% 50 ML SYRINGE IV PRN ×2 (04:30)
[2019-02-25] MEDS ORDERED: GLUCOSE GEL 15 GRAM TUBE PO PRN ×2 (04:30)
[2019-02-25] MEDS ORDERED: GLUCAGON 1 MG INJ IM PRN (04:30)
[2019-02-25] MEDS: GABAPENTIN 400 MG CAP PO SCH ×3 (04:39→23:02)
[2019-02-25] MEDS: QUETIAPINE 100 MG TAB PO SCH ×2 (04:39→23:03)
[2019-02-25] MEDS: DIVALPROEX (ER) 500 MG TAB PO SCH ×2 (04:39→08:21)
[2019-02-25] MEDS: INSULIN ASPART [NOVOLOG] 3 ML PEN SC SCH ×3 (13:43→23:07)
[2019-02-25] MEDS ORDERED: INSULIN GLARGINE [LANTus] (100 UNITS/ML) SYG SC SCH (21:00)
[2019-02-26] MEDS: INSULIN ASPART [NOVOLOG] 3 ML PEN SC SCH ×2 (07:11→11:49)
[2019-02-26] MEDS: DIVALPROEX (ER) 500 MG TAB PO SCH (09:38)
[2019-02-26] MEDS: GABAPENTIN 400 MG CAP PO SCH (09:38)
[2019-02-26 12:06] VITALS: BP 126/77; PULSE 76; RESP 18
== END 2019-02-26 12:07 | disposition home or self-care (01) ==
LOC: E/R 15:34
DX: R45.851 Suicidal ideations (principal); E10.65 Type 1 diabetes mellitus with hyperglycemia; N48.89 Other specified disorders of penis; Z79.4 Long term (current) use of insulin
CPT/HCPCS: 80048; 80053; 80164; 80307; 81001; 82962; 85025; 96372; J1815; Z7502; Z7610